=== PATIENT | female | born 1990 | race Caucasian/White ===

== ENCOUNTER 2017-03-15 11:00 | Inpatient (IN) ==
[2017-03-19] MEDS ORDERED: MORPHINE SULFATE PF 5mg/10ml INJ (Duramorph) ONE (23:38)
[2017-03-19] MEDS ORDERED: FentaNYL 100 MCG/2 ML INJECTION ONE (23:39)
[2017-03-20] MEDS ORDERED: ONDANSETRON 4 MG/2 ML INJECTION ONE (00:49)
[2017-03-20] MEDS ORDERED: EPHEDRINE 50mg/ml INJECTION ONE (00:49)
[2017-03-20] MEDS ORDERED: SALINE FLUSH 10ml SYRINGE ONE (00:49)
[2017-03-20] MEDS ORDERED: METHYLERGONOVINE 0.2 MG/ML INJECTION IM PRN (08:34)
[2017-03-20] MEDS ORDERED: LIDOCAINE 1% (10mg/ml) 2mL INJ PF SDV ID PRN (08:34)
[2017-03-20] MEDS ORDERED: CARBOPROST 250 MCG/ML INJECTION IM PRN (08:34)
[2017-03-20] MEDS ORDERED: MAG-AL + SIM ORAL LIQUID 30ml PO PRN ×2 (08:34→14:20)
[2017-03-20] MEDS ORDERED: CALCIUM CARBONATE Chewable 500mg TABLET PO PRN ×2 (08:34→14:20)
[2017-03-20] MEDS ORDERED: ACETAMINOPHEN 500 MG TABLET PO PRN ×2 (08:34→14:20)
[2017-03-20] MEDS: LR 1,000 ML IV PRN ×3 (08:45→11:57)
[2017-03-20] MEDS ORDERED: OXYTOCIN DRIP 30 UNIT/500 ML ML IV PRN (10:00)
[2017-03-20] MEDS ORDERED: D5LR 1,000 ML IV PRN (10:00)
--- NOTE | 2017-03-20 11:12 | Anesthesia Preoperative Report ---
Anesthesia Epidural/Spinal Rec - Date and Time Date: 03/20/17 Procedure: Labor Epidural Plan: Epidural - Vital Signs Vital Signs: Temp Pulse Resp BP Pulse Ox 97.8 F 83 16 117/70 100 03/20/17 09:11 03/20/17 09:11 03/20/17 09:11 03/20/17 09:11 03/20/17 09:11 NPO since: T-1 /Para: P:2 Heart Rate: 147 - Medictaions & Allergies Inpatient Medications: Current Medications Acetaminophen (Tylenol) 500 - 1,000 mg PO Q4H PRN PRN Reason: Pain Al Hydroxide/Mg Hydroxide (Maalox Plus) 30 ml PO Q3H PRN PRN Reason: Indigestion Calcium Carbonate (Tums) 500 - 1,000 mg PO Q2H PRN PRN Reason: Indigestion Carboprost Tromethamine (Hemabate) 250 mcg IM O PRN PRN Reason: .Downtime Lactated Ringer's (Lactated Ringers) 1,000 mls @ 1,000 mls/hr IV .Q1H PRN PRN Reason: as directed Last Admin: 03/20/17 09:57 Dose: 1,000 mls/hr Dextrose/Lactated Ringer's (Dextrose 5%-Lactated Ringers) 1,000 mls @ 125 mls/ hr IV .Q8H PRN PRN Reason: Labor Oxytocin (Pitocin Drip) 30 unit in 500 mls @ 2 mls/hr IV .Q24H PRN; Protocol PRN Reason: Induction/Augmentation Last Admin: 03/20/17 10:33 Dose: 2 mls/hr Lidocaine HCl (Xylocaine-Mpf 1% Vial) 0.2 mg ID O PRN PRN Reason: IV Start Methylergonovine Maleate (Methergine) 0.2 mg IM O PRN Misoprostol (Cytotec) 800 mcg CA ONCE PRN Allergies/Adverse Reactions: Allergies Allergy/AdvReac Type Severity Reaction Status Date / Time No Known Drug Allergies Allergy Unknown Verified 03/20/17 09:54 - Home Medications Home Medications: Home Medications Medication Instructions Recorded Confirmed Type Acetaminophen [Tylenol] 1 - 2 tab PO Q6HPRN PRN 03/15/17 03/20/17 History Doxylamine/Pyridoxine HCl (B6) 1 each PO DAILY 03/15/17 03/20/17 History [Marv Carballo 10-10 mg Tablet] Vit Calc,Iron,Folic 1 each PO DAILY 03/15/17 03/20/17 History [ Vitamins] - Medical History Respiratory: DENIES: Asthma Cardiovascular: DENIES: Heart Murmur, Hypertension Gastrointestional: DENIES: Gastroesophageal Reflux Disease Renal/Endocrine: DENIES: Diabetes Mellitus Type 2 Other History: DENIES: Anesthesia Reactions - Pertinent Findings Lab Data: CBC and BMP 03/20/17 08:48 - Discussion Discussion: Discussed risks/options/alternatives of anesthesia and questions answered. Patient consents. Nursing pain assessment noted. Attestation Statement: Prior to the delivery of any anesthetic medication, I examined the patient, developed the plan, obtained the patient's consent and discussed the risk and benefits of the procedure with the patient/guardian.
[2017-03-20] MEDS ORDERED: DiphenhydrAMINE 50 MG/ML INJECTION IVP PRN (11:31)
[2017-03-20] MEDS ORDERED: ONDANSETRON 4 MG/2 ML INJECTION IVP PRN (11:31)
[2017-03-20] MEDS ORDERED: ROPIVACAINE 1% 10MG/ML INJ 200 MG, SUFentanil 50 MCG in NS 100 ML EPI PRN (11:31)
[2017-03-20] MEDS ORDERED: NALOXONE 0.4 MG/ML INJECTION IVP PRN (11:31)
[2017-03-20] MEDS ORDERED: PHENYLEPHRINE RECTAL SUPPOSITORY PR PRN (14:20)
[2017-03-20] MEDS ORDERED: HYDROCORTISONE 2.5% CREAM 30gm RECTALLY PRN (14:20)
[2017-03-20] MEDS ORDERED: DiphenhydrAMINE 25 MG CAPSULE PO PRN (14:20)
[2017-03-20] MEDS ORDERED: HYDROCODONE/APAP 5mg/325mg TABLET PO PRN (14:20)
[2017-03-20] MEDS ORDERED: SALINE FLUSH 10ml SYRINGE IVF PRN (14:20)
--- NOTE | 2017-03-20 14:22 | OB/GYN Procedure Note ---
Delivery date: 03/20/17 Procedure: Patient is a 26 year old, 3, para 2 who presented to labor and delivery at 36 weeks 6 days with spontaneous rupture of membranes with clear fluid earlier today at 0745 (premature PROM more than 34 weeks). Antepartum complications included elevated 1 hour but normal 3 hour glucose screening. Patient presented to the hospital at 0800 this morning and was dilated to 3 centimeter. heart rate was reactive and reassuring. Patient was comfortable and gabriela every 5 minutes so we opted for conservative management. She did not have any cervical change in the next hour and her contractions had spaced out so Pitocin per protocol was started for induction of labor for premature rupture of membranes until an adequate contraction pattern was achieved. She entered active labor at 5 centimeters approximately 2 hours later. At that time, she felt increasingly uncomfortable. An epidural was placed per patient's wishes for labor analgesia. No other complication noted. She progressed to complete dilation after 6 hours of labor. Patient remained in the labor room, was prepped and draped in the usual sterile fashion. The delivered spontaneously and without difficulty after 5 minutes of pushing with good maternal effort. The infant had a good vigorous cry. Patient declined skin- to-skin and preferred that the be assessed at the warmer station first. The cord was clamped and cut after a 1 minute delay, and the placenta spontaneously delivered without difficulty after 15 minutes. There was a first degree perineal laceration noted which was repaired in the usual fashion using 2 -0 chromic suture. A vaginal sweep was then performed. Hemostasis was noted. No complications. No atony. Infant and mother are doing well at this time. Apgars 7/9 Weight: 6 lbs 5.1 oz Name: Jackie Gutierrez
[2017-03-20] MEDS ORDERED: OXYTOCIN DRIP 30 UNIT/500 ML ML IV SCH (14:30)
[2017-03-20] MEDS: IBUPROFEN 800 MG TABLET PO PRN ×2 (15:23→23:07)
--- NOTE | 2017-03-21 08:15 | Discharge Summary ---
Discharge Plan - Med Rec/Dispo Prescriptions: New Ibuprofen [Motrin] 800 mg PO Q8H PRN #50 PRN Reason: Pain Docusate Calcium [Surfak] 240 mg PO DAILY cap Continue Vit Calc,Iron,Folic [ Vitamins] 1 each PO DAILY #90 No Action Acetaminophen [Tylenol] 1 - 2 tab PO Q6HPRN PRN PRN Reason: Pain Doxylamine/Pyridoxine HCl (B6) [Marv Carballo 10-10 mg Tablet] 1 each PO DAILY - Disposition 01 Discharged Home, Self-Care
[2017-03-21] MEDS: IBUPROFEN 800 MG TABLET PO PRN ×2 (08:20→15:51)
--- NOTE | 2017-03-21 08:24 | OB/GYN Progress Note ---
OB-PP Progress Note - General PPD1 Maternal Group B Strep: Negative Maternal blood type: O+ Maternal Rubella Status: Immune - Subjective Date: 03/21/17 Lochia: Moderate Pain: contolled Voiding: voiding Nausea or Vomiting Present: No - Objective Vital Signs: Last Vital Signs Temp 98.5 F 03/20/17 22:00 Pulse 72 03/20/17 22:00 Resp 16 03/20/17 22:00 BP 98/53 03/20/17 22:00 Pulse Ox 99 03/20/17 22:00 Urine Output: good General: alert and oriented Respiratory: non-labored Abdomen: fundus firm, non-tender Extremities: non-tender Edema: none Laboratory: Laboratory Results - last 24 hr 03/20/17 03/21/17 08:48 05:54 WBC 11.9 H 12.8 H RBC 3.86 L 3.38 L Hgb 12.2 10.5 L D Hct 35.7 L 31.6 L D MCV 92.5 93.5 MCH 31.6 31.1 MCHC 34.2 33.2 RDW Std Deviation 45.4 44.9 Plt Count 206 195 MPV 10.7 10.9 - Assessment Assessment: SPMAYKELD - Plan Plan: routine care Expected date of discharge: 03/21/17
[2017-03-21] MEDS ORDERED: PRENATAL VITAMIN TABLET PO SCH (09:00)
[2017-03-21] MEDS ORDERED: DOCUSATE CALCIUM 240 MG CAPSULE PO SCH (09:00)
--- NOTE | 2017-03-21 10:42 | Anesthesia Postoperative Note ---
- Date and Time Date: 03/21/17 Time: 10:41 - Status Patient Participated in Evaluation: Patient Participated in Person Vital Signs: Temp Pulse Resp BP Pulse Ox 98.0 F 68 16 97/53 99 03/21/17 09:45 03/21/17 09:45 03/21/17 09:45 03/21/17 09:45 03/20/17 22:00 Respiratory Function: Airway Patent Cardiovascular Function: Regular Pulse EKG Rhythm: Normal Sinus Rhythm Mental Status: Alert and Oriented Hydration: Taking PO Fluids Complications During Recover: None Apparent - Follow-Up Instructions Instructions: Per Surgeon
== END 2017-03-21 18:27 | disposition home or self-care (01) | DRG 775 ==
LOC: MC 03-20 08:21
PROVIDERS: ADMIT Obstetrics & Gynecology; ATTEND Obstetrics & Gynecology

== ENCOUNTER 2018-05-16 06:04 | Inpatient (IN) ==
[2018-05-16] MEDS ORDERED: D5LR 1,000 ML IV PRN (06:14)
[2018-05-16] MEDS ORDERED: METHYLERGONOVINE 0.2 MG/ML INJECTION IM PRN (06:14)
[2018-05-16] MEDS ORDERED: CARBOPROST 250 MCG/ML INJECTION IM PRN (06:14)
[2018-05-16] MEDS ORDERED: MAG-AL + SIM ORAL LIQUID 30ml PO PRN (06:14)
[2018-05-16] MEDS ORDERED: SALINE FLUSH 10ml SYRINGE IV PRN (06:14)
[2018-05-16] MEDS ORDERED: CALCIUM CARBONATE Chewable 500mg TABLET PO PRN (06:14)
[2018-05-16] MEDS ORDERED: LIDOCAINE 1% (10mg/ml) 2mL INJ PF SDV ID PRN (06:14)
[2018-05-16] MEDS ORDERED: ACETAMINOPHEN 500 MG TABLET PO PRN (06:14)
[2018-05-16] MEDS ORDERED: OXYTOCIN DRIP 30 UNIT/500 ML ML IV PRN (06:16)
[2018-05-16 06:23] VITALS: BMI 22.6
[2018-05-16] MEDS: LR 1,000 ML IV PRN ×2 (06:25→13:41)
--- OUTSIDE RECORDS SUMMARY | 2018-05-16 06:30 | External Medical Summary | Continuity of Care Document ---
:1990 Author Organization [facility] Address [address] [place] [id number] Phone Care Team Providers Name Role Phone Annette Gupta MD Unavailable Unavailable Allergies, Adverse Reactions, Alerts Substance Reaction Severity Status No Known Drug Allergies Unknown Active Medications Medication Instructions Dosage Effective Dates Status Comments (start - stop) Plus take 1 tablet by Not Available - Active (calcium oral route every carbonate) 27 mg day iron-1 mg tablet Problems Condition Effective Dates (start - stop) Clinical Status Supervision of other high risk - pregnancies, third trimester 30 weeks gestation of - Encntr for suprvsn of normal , unsp, unsp trimester Irregular Menses Supervision of other high risk - pregnancies, first trimester 11 weeks gestation of - Supervision of other high risk - pregnancies, first trimester Less than 8 weeks gestation of - Supervision of other high risk - pregnancies, second trimester 27 weeks gestation of - Supervision of other high risk - pregnancies, second trimester 22 weeks gestation of - Supervision of other high risk - pregnancies, second trimester 18 weeks gestation of - Supervision of other high risk - pregnancies, second trimester Matern care for oth or susp poor fetl - grth, 2nd tri, unsp 18 weeks gestation of - Matern care for oth or susp poor fetl - grth, 2nd tri, unsp 15 weeks gestation of - Matern care for oth or susp poor fetl - grth, third tri, unsp 32 weeks gestation of - False labor before 37 completed weeks - of gest, third tri Left lower quadrant pain 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) w 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 Pap Smear Screening, Cervix Left lower quadrant pain - Left lower quadrant pain Abnormal Pap, LSIL Abnormal Pap, LSIL Encounter for test, result - negative Pap Smear Screening, Cervix - Encounter for initial prescription of contraceptive pills Follow-Up, Routine Encounter for oth general cnsl and advice on procreation Cervical Dysplasia, Mild - Active Active Procedures Procedure Date OB Visit No Charge Results Test Name Date and Time Measure Units Reference Range Abnormal Flag Comments Unknown Advance Directives Directive Yes / No Effective Date File Name Unknown Encounters Encounter Practice Location Reason(s) Diagnoses Date Provider Care Team Description For Visit Members Claudette Brice Matern care for Mar- Foster Referring In Womens oth or susp poor 5-201 Nora. Provider: Asha HOLLINS, fetl grth, third 8 [address] tri, [id number] [facility] [address] [address], weeks gestation Center n, [address] [place], of [place]on Carballo MD, [address], [place] , [id number], [place], [place], [address]. tel:[phone] tel: [phone] , [place]. [id number] tel: [phone] Claudette Brice Supervision of Foster Referring In Womens other high risk 0-201 Nora. Provider: Asha HOLLINS, pregnancies, 8 [address] third [facility] [address], Center n, 700 [place], weeks gestation Weston Carballo MD, of [address] [id number], [place]uniel Br[place], [place], [address]. tel: [phone] tel: , [place]. [id number] tel: [phone] Brice Supervision of May-3 Foster Referring In Womens other high risk 0-201 Nora. Provider: Health [facility], pregnancies, 8 [address] PO Box second [facility] [place], [email or web address] Center n, 700 [place], weeks gestation Weston Carballo, of 120, [place] , [id number], [place]uniel Br[place], [place], [address]. tel:[phone] tel: , [place]. [id number] tel: [phone] Claudette Brice Supervision of Apr-3 Foster Referring In Womens other high risk 0-201 Nora. Provider: [facility], pregnancies, 8 [address] PO Box second [facility] [place] [address], [email or web address] Center n, 700 [place], weeks gestation Weston Carballo, of 120, [place] , [id number], [place]uniel Br[place], [place], [address]. tel: tel: , [place]. [id number] tel: [phone] Claudette Brice Supervision of Apr-0 Foster Referring In Womens other high risk 2-201 Nora. Provider: Health [facility], pregnancies, 8 700 [address] PO Box second [facility] [place] [address], [email or web address] Center n, 700 [place], weeks gestation Weston Carballo, of 120, [place] , [id number], Yuniel Brice, [place], [address]. tel:[phone] tel: , [place]. [id number] tel: [phone] Claudette Brice Supervision of Apr-0 Foster Referring In Womens Ultrasound other high risk 2-201 Nora. Provider: [facility], pregnancies, 8 700 An[address]te PO Box second [facility] [place] [address], trimesterMatern Center n, 700 [place], care for oth or Weston Carballo, susp poor fetl 120, [place] , [id number], gr, 2nd triYuniel [place], unsp18 [place], [address]. tel: gestation of [phone] tel: , [place]. [id number] tel: [phone] Claudette Brice Matern care for Nov-0 Foster Referring In Womens oth or susp poor 7-201 Nora. Provider: Asha HOLLINS, fetl grth, 2nd 8 [address] PO Box tri, [id number] [facility] [place] [address], weeks gestation Center n, 700 [place], of , [facility], 120, [place] , [id number], Yuniel Brice, [place], [address]. tel:[phone] tel: , [place]. [id number] tel: [phone] Claudette Brice Supervision of Oct- Foster Referring In Womens other high risk 7-201 Nora. Provider: Asha HOLLINS, pregnancies, 8 700 [address] PO Box first [facility] [place] [address], [email or web address] Center n, 700 [place], weeks gestation Dr [facility], of 120, [place] , [id number], Yuniel Brice, [place], [address]. tel:[phone] tel: , [place]. [id number] tel: [phone] Claudette Brice Supervision of Foster Referring In Womens other high risk 0-201 Nora. Provider: Asha HOLLINS, pregnancies, 8 700 [address] PO Box first [facility] [place] [address], trimesterLess Center n, 700 [place], than 8 weeks , [facility], gestation of 120, Center , , Yuniel Brice, [place], [address]. tel:[phone] tel: , [place]. [id number] tel: [phone] Claudette Brice Encntr for Aug- Foster Referring In Womens suprvsn of 7-201 Nora. Provider: Asha HOLLINS, normal 7 700 [address]nette PO Box , unsp, [facility] [place] [address], unsp trimester Center n, [address] [place], Dr [facility], 120, [place] , [id number], Yuniel Brice, [place], [address]. tel:[phone] tel: , [place]. [id number] tel: [phone] Claudette Brice Irregular Menses Dec-2 Foster In Womens 6-201 Nora. Asha HOLLINS, 7 700 PO Box Medical [address], [address] Tyree, [facility], 120, [id number], [place], [place], tel:[phone] , [place]. tel: [phone] Claudette Brice Abnormal Pap, Apr-1 Foster Referring In Womens LSILAbnormal 7-201 Nora. Provider: Asha HOLLINS, Pap, 7 700 [address] [facility], for Center n, 700 [place], test, result , [facility], negative 120, [place] , , [place], [place], [address]. tel:[phone] tel: , [place]. [id number] tel: [phone] Claudette Brice Pap Smear Apr-0 Foster Referring In Womens Screening, 4-201 Nora. Provider: Asha HOLLINS, [facility] 7 700 Annette PO Box for initial Medical [facility] 1522, prescription of Center n, 700 Tyree, contraceptive , [facility], pillsPostpartum 120, [place] , , Follow-Up, Y[place], [place], [address]. tel:[phone] tel: , [place]. [phone] tel: [phone] [facility] False labor Vignesh-1 Foster Referring In Womens before 37 3-201 Nora. Provider: Asha HOLLINS, completed weeks 7 700 Annette PO Box [facility], tri Center n, [address] Dr Tyree, [facility] [place], 120, [place] , [id number], [place], [place], [address]. tel:[phone] tel: , [place]. [id number] tel: [phone] Claudette Brice May- Foster Referring In Womens 7-201 Nora. Provider: Asha HOLLINS, 7 700 [address]te [facility], Center n, [address] Dr Tyree, [facility] [place], 120, Center , [id number], [place], [place], [address]. tel:[phone] tel: , [place]. [id number] tel: [phone] [facility] Encounter for Mar-2 Foster In Womens oth general cnsl 7-201 Nora. [facility], and advice on 6 700 PO Box procreation Medical [address], [place] [address] Tyree, [facility] [place], 120, [id number], [place], [place], tel:[phone] , [place]. tel: [phone] [facility] Left lower Apr-1 Resendez In Womens quadrant pain 1-201 Malaika. [facility], 6 700 PO Box Medical [address], [place] [address] Tyree, [facility] [place], 120, , [place], [place], tel:[phone] , [place]. tel: [phone] [facility] Left lower Apr-1 Foster In Womens Ultrasound quadrant pain 1-201 Nora. [facility], 6 700 PO Box Medical [address], [place] [address] [place], [facility] [place], 120, , [facility] [place], tel:[phone] , [place]. tel: [phone] [facility] Left lower Apr-0 Foster Referring In Womens quadrant 8-201 Nora. 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 , [place]. tel: tel: [phone] [facility] Sep-1 Resendez In Womens 9-201 Malaika. [facility], 2 700 PO Box Medical [address], [place] [address] Tyree, [facility] [place], 120, [id number], [place], [place], tel:[phone] , . tel:[phone] Family History Family Member Diagnosis Age At Onset Mother Diabetes mellitus Maternal grandmother Liver Disease 75 Maternal grandmother Diabetes mellitus No family history of Venous Thrombosis No family history of Ovarian Cancer No family history of Breast Cancer No family history of Pulmonary Embolism Maternal Grandfather Cardiovascular Disease Mother Renal disease No family history of Colon Cancer Mother Hypertension No family history of Uterine Cancer Immunizations Vaccine Date Status Comments Influenza, injectable, completed Source: Other Provider quadrivalent, preservative free, 3 yrs or older Tdap completed Source: New Immunization Record HPV (9-valent) completed Source: New Immunization Record Payers Payer name Insurance type Covered democrat ID Authorization(s) [facility] [id number] [employer] [place] - Medicaid [place] [id number] [employer] [place] MC [id number] [facility] [id number] [employer] [place] Medicaid [place] [id number] Social History Type Description Quantity Date Captured Alcohol Use Details No Caffeine Use Details Unknown Tobacco Use Status Unknown Smoking Status Never smoker Vital Signs Date / Height Weight BMI Pulse Blood Temperature Respiratory Body Head BMI Time: Rate Pressure Rate Surface Circumference percentile Area 126.10 21.4 /2018 lbs 4 mm[Hg] 1:48 kg/m PM eter (2) Chief Complaint And Reason For Visit Unknown Chief Complaint And Reason For Visit Reason For Referral Reason For Referral Unknown Plan Of Care Date Type Action Status Appointment Rosita Zhou BOOKED Appointment Rosita Zhou BOOKED Future Order: Radiology Order Complete OB Ultrasound > 14 Weeks Ordered ([id number]) Future Order: Lab Order Pap Smear With HPV Reflex If ASCUS Ordered ([id number]) Future Order: Radiology Order Pelvic Ultrasound ([id number]) Ordered Date Type Problem Goal Intervention Status Start Date Unknown. History Of Present Illness Encounter Date Complaint History Of Present Illness This patient has no known history of present illness Functional Status Encounter Date Functional Assessment Cognitive Assessment Unknown Medications Administered Medication Instructions Dosage Effective Dates (start - stop) Status Comments Drug Treatment Unknown Instructions Date Instruction Additional Information gestational glucose lab screening HIV and other routine tests risk factors identified by history anticipated course of care nutrition and weight gain counseling, special diet toxoplasmosis precautions (cats / raw meat) exercise indications for ultrasound influenza vaccine environmental / work hazards travel tobacco (ask, advise, assess, assist and arrange) alcohol illicit / recreational drugs use of any medications (including supplements, vitamins, herbs, OTC drugs) smoking counseling domestic violence seat belt use genetic testing new ob handbook labor signs group B strep screening
--- OUTSIDE RECORDS SUMMARY | 2018-05-16 06:30 | External Medical Summary | Continuity of Care Document ---
:1990 Author Organization [facility] [place] Address [address] [place], [place] [id number] Phone Care Team Providers Name Role Phone Annette Gupta MD Unavailable Unavailable Allergies, Adverse Reactions, Alerts Substance Reaction Severity Status No Known Drug Allergies Unknown Active Medications Medication Instructions Dosage Effective Dates Status Comments (start - stop) Aviane 0.1 mg-20 take 1 tablet by Not Available - Active mcg tablet oral route every day Problems Condition Effective Dates (start - stop) Clinical Status Pap Smear Screening, Cervix - Encounter for initial prescription of contraceptive pills Follow-Up, Routine False labor before 37 completed weeks - of gest, third tri Left lower quadrant pain 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) - (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) w 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 Pap Smear Screening, Cervix Left lower quadrant pain - Left lower quadrant pain Encounter for oth general cnsl and advice on procreation Abnormal Pap, LSIL Abnormal Pap, LSIL Encounter for test, result - negative Cervical Dysplasia, Mild - Active Active Procedures Procedure Date Unknown Results Test Name Date and Time Measure Units Reference Range Abnormal Flag Comments Unknown Advance Directives Directive Yes / No Effective Date File Name Unknown Encounters Encounter Practice Location Reason(s) Diagnoses Date Provider Care Team Description For Visit Members Claudette [place] Foster In [facility] 8-201 [facility] [place], 7 700 [address], [place] [address] Tyree, [facility] [place], 120, [id number], [place], tel:[phone] , [place]. tel: [phone] Claudette [place] Abnormal Pap, Aug- Foster Referring In Womens LSILAbnormal 7-201 Nora. Provider: Asha HOLLINS, Pap, 7 700 Annette [facility], for Center n, 700 Tyree, test, result , [facility], negative 120, [place] , [id number], Yuniel [place], [place], [address]. tel:[phone] tel: , [place]. [id number] tel: [phone] Claudette [place] Pap Smear Apr-0 Foster Referring In Womens Screening, 4- Nora. Provider: Asha HOLLINS, CervixEncounter 7 700 Annette PO Box for initial Medical [facility] 1522, prescription of Center n, 700 Tyree, contraceptive , [facility], pillsPostpartum 120, [place] , , Follow-Up, Yun[place], [place], [address]. tel:[phone] tel: , [place]. [id number] tel: [phone] Claudette [place] False labor Vignesh- Foster Referring In Womens before 37 3-201 Nora. Provider: Asha HOLLINS, completed weeks 7 700 Annette PO Box of [facility], [facility] 1522, tri Center n, [address] Dr Tyree, [facility], 120, [place] , [id number], Yuniel [place], [place], [address]. tel:[phone] tel: , [place]. [id number] tel: [phone] Claudette [place] January- Foster Referring In Womens 7-201 Nora. Provider: Asha HOLLINS, 7 700 Annette PO Box [facility] 1522, Center n, [address] Dr Tyree, [facility], 120, [place] , [id number], [place]uniel [place], [place], [address]. tel:[phone] tel: , [place]. [id number] tel: [phone] Claudette [place] Encounter for Mar-2 Foster In Womens oth general cnsl 7-201 Nora. Health PA, and advice on 6 700 PO Box procreation Medical [address], [place] [address] Tyree, [place], [address], [id number], [place], tel:[phone] , [place]. tel: [phone] Claudette [place] Left lower Apr-1 Resendez In Womens quadrant pain 1-201 Malaika. Health [place], 6 700 [address] Medical [address], [place] [address] Tyree, [facility] [place], 120, [id number], [place], tel:[phone] , [place]. tel: [phone] Claudette [place] Left lower Apr-1 Foster In Womens Ultrasound quadrant pain 1-201 Nora. Health PA, 6 700 PO [address] Medical [address], [address], [facility] [place], 120, , [facility] [place], tel:[phone] , [place]. tel: [phone] Claudette [place] Left lower Apr-0 Foster Referring In Womens quadrant 8-201 Nora. Provider: Health PA, painEncntr for 700 Nora Foster PO Box director of marketing analytics exam Medical K, 700 1522, (general) [place] Lian Clements, (routine) w , [facility] [place], abnormal 120, [place] 120, [id number], findingsPap [facility], Smear Screening, [place], [place], tel: Cervix [phone]. , [place]. tel:+ tel: [phone] Claudette [place] Sep-1 Resendez In Womens 9-201 Malaika. Health [place], 2 700 PO Box Medical [address], [place] [address] Tyree, [facility] [place], 120, , [facility] [place], tel:[phone] , [place]. tel: [phone] Family History Family Member Diagnosis Age At [...] Uterine Cancer Immunizations Vaccine Date Status Comments Tdap completed Source: New Immunization Record HPV (9-valent) completed Source: New Immunization Record Payers Payer name Insurance type Covered green party ID Authorization(s) [facility] [id number] [employer] [place] Medicaid [place] [id number] [employer] [place] [id number] [facility] [id number] [employer] [place] Medicaid [place] [id number] Social History Type Description Quantity Date Captured Unknown Vital Signs Date / Height Weight BMI Pulse Blood Temperature Respiratory Body Head BMI Time: Rate Pressure Rate Surface Circumference percentile Area Unknown Chief Complaint And Reason For Visit Unknown Chief Complaint And Reason For Visit Reason For Referral Reason For Referral Unknown Plan Of Care Date Type Action Status Future Order: Lab Order Pap Smear With HPV Reflex If ASCUS Ordered ([id number]) Future Order: Radiology Order Pelvic Ultrasound ([id number]) Ordered Date Type Problem Goal Intervention Status Start Date Unknown. History Of Present Illness Encounter Date Complaint History Of Present Illness This patient has no known history of present illness Functional Status Encounter Date Functional Assessment Cognitive Assessment Unknown Medications Administered Medication Instructions Dosage Effective Dates (start - stop) Status Comments Drug Treatment Unknown Instructions Date Instruction Additional Information labor signs group B strep screening
--- OUTSIDE RECORDS SUMMARY | 2018-05-16 06:30 | External Medical Summary | Continuity of Care Document ---
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 Provider: Health GUNJAN, fetl grth, third 8 700 Annette PO Box tri, unsp32 Medical [place] [address]22, weeks gestation Center n, 700 [place], of [place], 120, [place] , [id number], Yuniel [place], [place], [address]. tel:[phone] tel: [phone] , [place]. [id number] tel: [phone] Claudette [place] Supervision of Foster Referring In Womens other high risk 0-201 Nora. Provider: Health PA, pregnancies, 8 700 Annette PO Box third Medical [place] [address], [email or web address] Center n, 700 [place], weeks gestation [place], of 120, Center Dr [id number], Yuniel [place], [place], [address]. tel: [phone] tel: , [place]. [id number] tel: [phone] [place] Supervision of May-3 Foster Referring In Womens other high risk 0-201 Nora. Provider: Health PA, pregnancies, 8 700 Annette PO Box second Medical [place] 1522, [email or web address] Center n, 700 [place], weeks gestation [place], of 120, Center , [id number], Yuniel [place], [place], [address]. tel:[phone] tel: , [place]. [id number] tel: [phone] Claudette [place] Supervision of Apr-3 Foster Referring In Womens other high risk 0-201 Nora. Provider: Health PA, pregnancies, 8 700 Annette PO Box second Medical [place] [address]22, [email or web address] Center n, [address] [place], weeks gestation [place], of 120, Center , [id number], Yuniel [place], [place], [address]. tel: tel: , [place]. [phone] tel: [phone] Claudette [place] Supervision of Apr-0 Foster Referring In Womens other high risk 2-201 Nora. Provider: Health PA, pregnancies, 8 700 Annette PO Box second Medical [place] [address], [email or web address] Center n, [address] [place], weeks gestation [place], of 120, Center , [id number], Yuniel [place], [place], [address]. tel:[phone] tel: , [place]. [phone] tel: [phone] Claudette [place] Supervision of Apr-0 Foster Referring In Womens Ultrasound other high risk 2-201 Nora. Provider: Health PA, pregnancies, 8 700 Annette PO Box second Medical [place] [address]22, trimesterMatern Center n, [address], care for oth or [place], susp poor fetl 120, Center , [id number], gr, 2nd triYuniel [place], unsp18 [place], [address]. tel: gestation of [phone] tel: , [place]. [id number] tel: [phone] Claudette [place] Matern care for Nov-0 Foster Referring In Womens oth or susp poor 7-201 Nora. Provider: Asha HOLLINS, fetl grth, 2nd 8 700 Annette PO Box tri, unsp15 Medical [place] 1522, weeks gestation Center n, [address] [place], of , [facility], 120, Center , [id number], Yuniel [place], [place], [address]. tel:[phone] tel: , [place]. [id number] tel: [phone] Claudette [place] Supervision of Oct- Foster Referring In Womens other high risk 7-201 Nora. Provider: Asha HOLLINS, pregnancies, 8 700 Annette PO Box first Medical [place] [address]22, [email or web address] Center n, [address] [place], weeks gestation Dr [facility], of 120, [place] , [id number], Yuniel [place], [place], [address]. tel:[phone] tel: , [place]. [id number] tel: [phone] Claudette [place] Supervision of Foster Referring In Womens other high risk 0-201 Nora. Provider: Asha HOLLINS, pregnancies, 8 700 Annette PO Box first Medical [place] 1522, trimesterLess Center n, [address] [place], than 8 weeks , [facility], gestation of 120, Center , , Yuniel [place], [place], [address]. tel:[phone] tel: , [place]. [id number] tel: [phone] Claudette [place] Encntr for Aug- Foster Referring In Womens suprvsn of 7-201 Nora. Provider: Asha HOLLINS, normal 7 700 Annette PO Box , unsp, Medical [place] 1522, unsp trimester Center n, [address] [place], Dr [facility], 120, Center , [id number], Yuniel [place], [place], [address]. tel:[phone] tel: , [place]. [id number] tel: [phone] Claudette [place] Irregular Menses Dec-2 Foster In Womens 6-201 Nora. Asha HOLLINS, 7 700 PO Box Medical [address], [address] Dr Tyree, [facility], 120, [id number], [place], [place], tel:[phone] , [place]. tel: [phone] Claudette [place] Abnormal Pap, Apr-1 Foster Referring In Womens LSILAbnormal 7-201 Nora. Provider: Asha HOLLINS, Pap, 7 700 Annette [facility], for Center n, 700 [place], test, result , [facility], negative 120, [place] , , [place], [place], [address]. tel:[phone] tel: , [place]. [id number] tel: [phone] Claudette [place] Pap Smear Apr-0 Foster Referring In Womens Screening, 4-201 Nora. Provider: Asha HOLLINS, [facility] 7 700 Annette PO Box for initial Medical [facility] 1522, prescription of Center n, 700 [place], contraceptive , [facility], pillsPostpartum 120, [place] , , Follow-Up, [place], [place], [address]. tel:[phone] tel: , [place]. [id number] tel: [phone] [facility] False labor Vignesh-1 Foster Referring In Womens before 37 3-201 Nora. Provider: Asha HOLLINS, completed weeks 7 700 Annette PO Box of [facility], [facility], tri Center n, [address] Dr [address]ree, [facility] [place], 120, [place] , [id number], [place], [place], [address]. tel:[phone] tel: , [place]. [id number] tel: [phone] Claudette [place] May- Foster Referring In Womens 7-201 Nora. Provider: Asha HOLLINS, 7 700 Annette PO Box [facility], Center n, [address] Dr Tyree, [facility] [place], 120, Center , [id number], [place], [place], [address]. tel:[phone] tel: , [place]. [id number] tel: [phone] [facility] Encounter for Mar-2 Foster In Womens oth general cnsl 7-201 Nora. Health PA, and advice on 6 700 PO Box procreation Medical 1522, [place] Dr Tyree, [facility] [place], 120, [id number], [place], tel:[phone] , [place]. tel: [phone] [facility] Left lower Apr-1 Resendez In Womens quadrant pain 1-201 Malaika. Health PA, 6 700 PO Box Medical [address], [place] [address] Tyree, [facility] [place], 120, , [place], [place], tel:[phone] , [place]. tel: [phone] [facility] Left lower Apr-1 Foster In Womens Ultrasound quadrant pain 1-201 Nora. Health PA, 6 700 PO Box Medical [address], [place] Dr Tyree, [facility] [place], 120, , [facility] [place], tel:[phone] , [place]. tel: [phone] [facility] Left lower Apr-0 Foster Referring In Womens quadrant 8-201 Nora. 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 , [place]. tel: tel: [phone] [facility] Sep-1 Resendez In Womens 9-201 Malaika. Health PA, 2 700 PO Box Medical [address], [place] [address] Tyree, [facility] [place], 120, [id number], [place], tel:[phone] , . tel:[phone] Family History Family Member Diagnosis Age At [...] Record Payers Payer name Insurance type Covered alliance party ID Authorization(s) [facility] [id number] [employer] [place] Medicaid MC [id number] [employer] [place] MC [id number] [facility] [id number] [employer] [place] Medicaid MC [id number] Social History Type Description Quantity Date Captured Alcohol Use Details No Caffeine Use Details Unknown Tobacco Use Status Unknown Smoking Status Never smoker Vital Signs Date / Height Weight BMI Pulse Blood Temperature Respiratory Body Head BMI Time: Rate Pressure Rate Surface Circumference percentile Area 129.20 21.9 / lbs 7 mm[Hg] 10:58 kg/m AM eter (2) Chief Complaint And Reason For Visit Unknown Chief Complaint And Reason For Visit Reason For Referral Reason For Referral Unknown Plan Of Care Date Type Action Status Appointment Rosita Zhou BOOKED Appointment Rosita Zhou BOOKED Future Order: Radiology Order Complete OB Ultrasound > 14 Weeks Ordered ([id number]) Future Order: Lab Order Pap Smear With HPV Reflex If ASCUS Ordered ([id number]) Future Order: Radiology Order Pelvic Ultrasound ([id number]) Ordered Date Type Problem Goal Intervention Status [...]
--- OUTSIDE RECORDS SUMMARY | 2018-05-16 06:30 | External Medical Summary | Continuity of Care Document ---
:1990 Author Organization [facility] Address [address] [place], [place] [id number] Phone Care Team Providers Name Role Phone [...] other high risk - pregnancies, third trimester Matern care for oth or susp poor fetl - grth, third tri, unsp 35 weeks gestation of - Encntr for suprvsn [...] other high risk - pregnancies, third trimester 35 weeks gestation of - Supervision of other high risk - pregnancies, third trimester 30 weeks gestation of - Supervision of other high risk - pregnancies, third trimester 37 weeks gestation of - Supervision of other high risk - pregnancies, third trimester 37 weeks gestation of - Matern care for oth or susp poor fetl - grth, 2nd tri, unsp 15 weeks gestation of - Matern care for oth or susp poor fetl - grth, third tri, unsp 32 weeks gestation of - False labor before 37 completed weeks - of gest, third tri Left lower quadrant pain 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 Provider: Health PA, pregnancies, 8 700 Annette PO Box [facility] Medical [address] 1522, [email or web address] Center n, 700 [place], weeks gestation , [facility] Medical [place], of 120, [place] , [id number], [place], [place], [address]. tel:[phone] tel:+ [phone] , . [id number] tel: [phone] Claudette Br[place] Supervision of Apr-0 Foster Referring In Womens other high risk 9-201 Nora. Provider: Health PA, pregnancies, 8 700 Annette PO Box third Medical [place] [address], [email or web address] Center n, 700 [place], weeks gestation Weston Carballo, of 120, Center , [id number], [place], [place], [address]. tel:[phone] tel: , [place]. [id number] tel: [phone] Claudette Brice Supervision of Mar-2 Colten Referring In Womens other high risk 6-201 Tyree. 700 Provider: Health PA, pregnancies, 8 Medical Nanette PO Box third [facility], [email or web address] Weston Carballo, 700 [place], weeks gestation 120, Medical JANNETTE, of [place], [address] [id number], JANNETTE, [place], [id number] [place], [address]. tel: , [place]. tel: tel: [phone] Claudette Br[place] Supervision of Mar-2 Foster Referring In Womens Ultrasound other high risk 6-201 Nora. Provider: Health PA, pregnancies, 8 700 Annette PO Box [facility], trimesterMatern Center n, 700 [place], care for oth or Weston Carballo, susp poor fetl 120, Center Dr [id number], gr, third Yuniel crockett [place], unsp35 [place], [address]. tel: gestation of [phone] tel: , [place]. [id number] tel: [phone] Claudette Brice [facility] care for Mar-0 Foster Referring In Womens oth or susp poor 5-201 Nora. Provider: Health PA, fetl grth, third 8 700 Annette PO Box tri, unsp32 Medical [facility], weeks gestation Center n, 700 [place], of Weston Carballo, 120, Center , [id number], [place], [place], [address]. tel: tel: , [place]. [phone] tel: [phone] Claudette Br[place] Supervision of Vignesh-2 Foster Referring In Womens other high risk 0-201 Nora. Provider: Health PA, pregnancies, 8 700 Annette PO Box third Medical [place] [address], [id number] Center n, 700 [place], weeks gestation Weston Carballo, of 120, Center [address] [id number], Yuniel [place], [place], [address]. tel:[phone] tel: , US. [id number] tel: [phone] Claudette Br[place] Supervision of May-3 Foster Referring In Womens other high risk 0-201 Nora. Provider: Health PA, pregnancies, 8 700 Annette PO Box second Medical [place] [address]22, [email or web address] Center n, 700 [place], weeks gestation Weston Carballo, of 120, [address] [id number], Yuniel [place], [place], [address]. tel:[phone] tel: , [place]. [id number] tel: [phone] Claudette Br[place] Supervision of Apr-3 Foster Referring In Womens other high risk 0-201 Nora. Provider: Health PA, pregnancies, 8 700 Annette PO Box second Medical [place] 15[address], [email or web address] Center n, 700 [place], weeks gestation Weston Carballo, of 120, Center Dr [id number], Yuniel [place], [place], [address]. tel:[phone] tel: , US. [id number] tel: [phone] Claudette Br[place] Supervision of Apr-0 Foster Referring In Womens other high risk 2-201 Nora. Provider: Health PA, pregnancies, 8 700 Annette PO Box second Medical [place] [address]22, [email or web address] Center n, 700 [place], weeks gestation Weston Carballo, of 120, Center Dr [id number], Yuniel [place], [place], [address]. tel:[phone] tel: , US. [id number] tel: [phone] Claudette Br[place] Supervision of Apr-0 Foster Referring In Womens Ultrasound other high risk 2-201 Nora. Provider: Health PA, pregnancies, 8 700 Annette PO Box second Medical [place] [address]22, trimesterMatern Center n, 700 [place], care for oth or Weston Carballo, susp poor fetl 120, Center , [id number], gr, 2nd [facility], Yuniel [place], unsp18 [place], [address]. tel: gestation of [phone] tel: , US. [id number] tel: [phone] Claudette Br[place] Matern care for Mar-0 Foster Referring In Womens oth or susp poor 7-201 Nora. Provider: Asha HOLLINS, fetl grth, 2nd 8 700 Annette PO Box tri, unsp15 Medical [place]22, weeks gestation Center n, 700 [place], of Weston Carballo, 120, [place] , [id number], Yuniel [place], [place], [address]. tel: tel: , US. [phone] tel: [phone] Claudette Brice Supervision of Oct-0 Foster Referring In Womens other high risk 7-201 Nora. Provider: Asha HOLLINS, pregnancies, 8 700 Annette PO Box first Medical [place] [address], [email or web address] Center n, 700 [place], weeks gestation Weston Carballo, of 120, Center , [id number], Yuniel [place], [place], [address]. tel: tel: , [place]. [id number] tel: [phone] Claudette Br[place] Supervision of Foster Referring In Womens other high risk 0-201 Nora. Provider: Asha HOLLINS, pregnancies, 8 700 Annette PO Box first Medical [place] 1522, trimesterLess Center n, 700 [place], than 8 weeks Weston Carballo, gestation of 120, Center , , Yuniel [place], [place], [address]. tel: tel: , US. [id number] tel: [phone] Associates Y[facility] Encntr for Dec-2 Foster Referring In Womens suprvsn of Nora. Provider: Asha HOLLINS, normal 7 700 Annette PO Box , unsp, Medical [place] [address], unsp trimester Center n, [address] Dr Tyree, [facility], 120, [place] , [id number], Yuniel [place], [place], [address]. tel:[phone] tel: , US. [id number] tel: [phone] Associates Y[facility]iel Irregular Menses Dec-2 Foster In Womens Nora. Asha HOLLINS, 7 700 PO Box Medical [address], Center Dr Tyree, [facility], 120, [id number], [place], tel: , [place]. tel: [phone] Claudette Br[place] Abnormal Pap, Aug-1 Foster Referring In Womens LSILAbnormal Nora. Provider: Asha HOLLINS, Pap, 7 700 Annette PO Box [facility], for Center n, 700 [place], test, result , [facility], negative 120, [place] , , Yuniel [place], [place], [address]. tel:[phone] tel: , US. [id number] tel: [phone] Claudette Brice Pap Smear Aug-0 Foster Referring In Womens Screening, Nora. Provider: Asha HOLLINS, CervixEncounter 7 700 Annette PO Box for initial Medical [place] [address]22, prescription of Center n, 700 [place], contraceptive , [facility], pillsPostpartum 120, [place] , , Follow-Up, Yun[place], [place], [address]. tel:[phone] tel: , US. [phone] tel: [phone] Associates Y[facility]iel False labor Vignesh-1 Foster Referring In Womens before 37 3-201 Nora. Provider: Health GUNJAN, completed weeks 7 700 Annette PO Box of [facility], tri Center n, [address] Dr Tyree, [facility] [place], 120, [place] , [id number], [place], [place], [address]. tel:[phone] tel:+ , US. [id number] tel: [phone] Associates Y[facility]iel May- Foster Referring In Womens 7-201 Nora. Provider: Asha HOLLINS, 7 700 Annette PO Box [facility], Center n, [address] Dr Tyree, [facility] [place], 120, [place] , [id number], [place], [place], [address]. tel:[phone] tel:[phone] , US. [id number] tel: [phone] Associates Y[facility]iel Encounter for Mar- Foster In Womens oth general cnsl Nora. Health PA, and advice on 6 700 PO Box procreation Medical 1522, [place] [address] Tyree, [facility] [place], 120, [id number], [place], tel:[phone] , [place]. tel:[phone] Associates Yuniel Left lower Apr-1 Resendez In Womens quadrant pain 1-201 Malaika. Asha HOLLINS, 6 700 PO Box Medical [address], [place] [address] Tyree, [facility] [place], 120, [id number], [place], tel:[phone] , [place]. tel:[phone] Claudette Br[place] Left lower Apr-1 Foster In Womens Ultrasound quadrant pain 1-201 Nora. Health UGNJAN, 6 700 PO Box Medical 1522, [place] [address] Tyree, [facility] [place], 120, [id number], [place], tel:[phone] , [place]. tel:[phone] Claudette Br[place] Left lower Apr-0 Foster Referring In Womens quadrant 8-201 Nora. 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 , [place]. tel: tel: [phone] Associates Yuniel Sep-1 [place] In Womens 9-201 [facility], 2 700 PO [facility] 1522, [place] Dr Tyree, Weston JANNETTE, 120, [id number], [place], [place], tel: [phone] , [place]. tel: [phone] Family History Family Member Diagnosis Age At [...] Insurance type Covered alliance party ID Authorization(s) [facility] [id number] [place] - Medicaid [place] [id number] [place] - Medicaid MC [id number] [facility] [id number] [place] - Medicaid [place] [id number] Social History Type Description Quantity Date Captured Unknown Vital Signs Date / Height Weight BMI Pulse Blood Temperature Respiratory Body Head BMI Time: Rate Pressure Rate Surface Circumference percentile Area Unknown Chief Complaint And Reason For Visit Unknown Chief Complaint And Reason For Visit Reason For Referral Reason For Referral Unknown Plan Of Care Date Type Action Status Appointment Rosita Zhou BOOKED Future Order: Radiology Order Ultrasound OB Follow-up ([id number]) Ordered Future Order: Radiology Order Complete OB Ultrasound > 14 Weeks Ordered ([id number]) Future Order: Lab Order Pap Smear With HPV Reflex If ASCUS Ordered ([id number]) Future Order: Radiology Order Pelvic Ultrasound ([id number]) Ordered Date Type Problem Goal Intervention Status [...]
--- OUTSIDE RECORDS SUMMARY | 2018-05-16 06:30 | External Medical Summary | Continuity of Care Document ---
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 Provider: [facility], pregnancies, 8 700 Annette PO Box [facility] Medical Maggie 1522, [email or web address] Center n, 700 [place], weeks gestation , [facility], of 120, Center , [id number], [place], [place], [address]. tel:[phone] tel:[phone] , US. [id number] tel: [phone] [place] Supervision of Aug-0 Foster Referring In Womens other high risk 9-201 Nora. Provider: Health PA, pregnancies, 8 700 Annette PO Box third Medical [place] [address], [email or web address] Center n, 700 [place], weeks gestation Weston Carballo, of 120, Center , [id number], Yuniel [place], [place], [address]. tel:[phone] tel: , US. [id number] tel: [phone] Claudette Br[place] Supervision of Mar-2 Colten Referring In Womens other high risk 6-201 Tyree. 700 Provider: Health PA, pregnancies, 8 Medical Annette PO Box third [facility], [place] Carballo, 700 [place], weeks gestation 120, Medical JANNETTE, of [facility] Dr [id number], JANNETTE, [place], [id number] [place], [address]. tel: , [place]. tel: tel: [phone] Claudette Br[place] Supervision of Mar-2 Foster Referring In Womens Ultrasound other high risk 6-201 Nora. Provider: Health PA, pregnancies, 8 700 Annette PO Box third [facility], trimesterMatern Center n, 700 [place], care for oth or Weston Carballo, susp poor fetl 120, Center Dr [id number], gr, [facility] Yuniel crockett [place], unsp35 [place], [address]. tel: gestation of [phone] tel: , US. [id number] tel: [phone] Claudette Brice [facility] care for Rafa-0 Foster Referring In Womens oth or susp poor 5-201 Nora. Provider: Health PA, fetl grth, third 8 700 Annette PO Box tri, unsp32 Medical [place] [address]22, weeks gestation Center n, 700 [place], of Weston Carballo, 120, Center , [id number], Yuniel [place], [place], [address]. tel: tel: , [place]. [phone] tel:[phone] Claudette Brice Supervision of Vignesh-2 Foster Referring In Womens other high risk 0-201 Nora. Provider: Health PA, pregnancies, 8 700 Annette PO Box third Medical [place] 1522, [email or web address] Center n, 700 [place], weeks gestation Weston Carballo, of 120, Center , [id number], Yuniel [place], [place], [address]. tel:[phone] tel:+ , US. [id number] tel: [phone] Claudette Br[place] Supervision of May-3 Foster Referring In Womens other high risk 0-201 Nora. Provider: Health PA, pregnancies, 8 700 Annette PO Box second Medical [place] 1522, [email or web address] Center n, 700 [place], weeks gestation Weston Carballo, of 120, [place] , [id number], Yuniel [place], [place], [address]. tel:[phone] tel: , US. [id number] tel: [phone] Claudette Br[place] Supervision of Apr-3 Foster Referring In Womens other high risk 0-201 Nora. Provider: Health PA, pregnancies, 8 700 Annette PO Box second Medical [place] 1522, Center n, 700 [place], weeks gestation Weston Carballo, of 120, [place] , [id number], Yuniel [place], [place], [address]. tel:[phone] tel:+ , US. [id number] tel: [phone] Claudette Br[place] Supervision of Apr-0 Foster Referring In Womens other high risk 2-201 Nora. Provider: Health PA, pregnancies, 8 700 Annette PO Box second Medical [place] 1522, [email or web address] Center n, 700 [place], weeks gestation Weston Carballo, of 120, Center , [id number], Yuniel [place], [place], [address]. tel:[phone] tel: , US. [id number] tel:[phone] Claudette Brice Supervision of Apr-0 Foster Referring In Womens Ultrasound other high risk 2-201 Nora. Provider: Asha HOLLINS, pregnancies, 8 700 Annette PO Box second Medical [place] 1522, trimesterMatern Center n, 700 [place], care for oth or Weston [place], susp poor fetl 120, Center , [id number], grmarcio, 2nd [facility], Yuniel [place], unsp18 [place], [address]. tel: gestation of [phone] tel: , US. [id number] tel: [phone] Claudette Br[place] Matern care for Mar-0 Foster Referring In Womens oth or susp poor 7-201 Nora. Provider: Asha HOLLINS, fetl grth, 2nd 8 700 Annette PO Box tri, unsp15 Medical [place] 1522, weeks gestation Center n, 700 [place], of Weston Carballo, 120, [place] , [id number], Yuniel [place], [place], [address]. tel: tel: , US. [id number] tel: [phone] Claudette [place] Supervision of Oct-0 Foster Referring In Womens other high risk 7-201 Nora. Provider: Asha HOLLINS, pregnancies, 8 700 Annette PO Box first Medical [place] 1522, [email or web address] Center n, 700 [place], weeks gestation Weston Carballo, of 120, [place] , [id number], Yuniel [place], [place], [address]. tel: tel: , US. [phone] tel: [phone] Claudette Br[place] Supervision of Foster Referring In Womens other high risk 0-201 Nora. Provider: Asha HOLLINS, pregnancies, 8 700 Annette PO Box first Medical [place] 1522, trimesterLess Center n, 700 [place], than 8 weeks Weston Carballo, gestation of 120, Center , , Yuniel rBice, [place], [address]. tel: tel: , US. [phone] tel: [phone] Associates Yuniel Encntr for Dec-2 Foster Referring In Womens suprvsn of Nora. Provider: Asha HOLLINS, normal 7 700 Annette PO Box , unsp, Medical [place] 1522, unsp trimester Center n, [address] Dr Tyree, [facility], 120, [place] , , Yuniel [place], [place], [address]. tel:[phone] tel: , US. [id number] tel: [phone] Associates Yuniel Irregular Menses Dec-2 Foster In Womens 6- Nora. Asha HOLLINS, 7 700 PO Box Medical 1522, Center Dr Tyree, [facility], 120, [id number], [place], [place], tel:[phone] , [place]. tel: [phone] Claudette Br[place] Abnormal Pap, Aug-1 Foster Referring In Womens LSILAbnormal Nora. Provider: Asha HOLLINS, Pap, 7 700 Annette PO Box [facility] [place], for Center n, 700 [place], test, result , [facility], negative 120, [place] , [id number], Yuniel [place], [place], [address]. tel:[phone] tel: , US. [phone] tel: [phone] Claudette Brice Pap Smear Aug-0 Foster Referring In Womens Screening, Nora. Provider: Asha HOLLINS, CervixEncounter 7 700 Annette PO Box for initial Medical [place] [address]22, prescription of Center n, 700 [place], contraceptive , [facility], pillsPostpartum 120, [place] , , Follow-Up, Yuniel [place], [place], [address]. tel:[phone] tel: , US. [id number] tel: [phone] Associates Yuniel False labor Vignesh-1 Foster Referring In Womens before 37 3- Nora. Provider: Asha HOLLINS, completed weeks 7 700 Annette PO Box [facility], tri Center n, [address] Dr Tyree, [facility] Medical [place], 120, [place] , [id number], [place], [place], [address]. tel:[phone] tel:+ , US. [id number] tel: [phone] Claudette Br[place] May- Foster Referring In Womens 7-201 Nora. Provider: Asha HOLLINS, 7 700 Annette PO Box [facility], Center n, [address] Dr Tyree, [facility] [place], 120, [place] , [id number], [place], [place], [address]. tel:[phone] tel:[phone] , US. 9747681 tel: [phone] Claudette Br[place] Encounter for Mar- Foster In Womens oth general cnsl 7- Nora. Health GUNJAN, and advice on 6 700 PO Box procreation Medical 1522, [place] Dr Tyree, [facility] [place], 120, [id number], [place], [place], tel:[phone] , [place]. tel:[phone] Caludette [place] Left lower Apr-1 Resendez In Womens quadrant pain 1-201 Malaika. Asha HOLLINS, 6 700 PO Box Medical 1522, [place] Dr Tyree, [facility] [place], 120, [id number], [place], tel:[phone] , [place]. tel:[phone] Claudette [place] Left lower Apr-1 Foster In Womens Ultrasound quadrant pain 1-201 Nora. Asha HOLLINS, 6 700 PO Box Medical 1522, [place] Dr Tyree, [facility] [place], 120, [id number], [place], tel:[phone] , [place]. tel:[phone] Claudette [place] Left lower Apr-0 Foster Referring In Womens quadrant 8-201 Nora. 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 , [place]. tel: tel: [phone] Associates Yuniel Sep-1 [place] In Womens 9-201 [facility], 2 700 PO [facility] 1522, [place] Dr Tyree, Weston JANNETTE, 120, [id number], [place], tel: [phone] , [place]. tel: [phone] Family History Family Member Diagnosis Age At [...] Insurance type Covered green party ID Authorization(s) [facility] [id number] [place] - Medicaid [place] [id number] [place] Medicaid [place] [id number] [facility] [id number] [place] - Medicaid MC [id number] Social History Type Description Quantity Date Captured Alcohol Use Details No Caffeine Use Details Unknown Tobacco Use Status Unknown Smoking Status Never smoker Vital Signs Date / Height Weight BMI Pulse Blood Temperature Respiratory Body Head BMI Time: Rate Pressure Rate Surface Circumference percentile Area 130.70 22.2 109/2018 lbs 2 mm[Hg] 1:48 kg/m PM eter (2) Chief Complaint And Reason For Visit Unknown Chief Complaint And Reason For Visit Reason For Referral Reason For Referral Unknown Plan Of Care Date Type Action Status Appointment Rosita Zhou BOOKED Future Order: Radiology Order Complete OB Ultrasound > 14 Weeks Ordered ([id number]) Future Order: Radiology Order Ultrasound OB Follow-up ([id number]) Ordered Future Order: Lab Order Pap Smear With HPV Reflex If ASCUS Ordered ([id number]) Future Order: Radiology Order Pelvic Ultrasound ([id number]) Ordered Date Type Problem Goal Intervention Status [...]
--- OUTSIDE RECORDS SUMMARY | 2018-05-16 06:31 | External Medical Summary | Continuity of Care Document ---
:1990 Author Organization [facility] Address [address] [place] [phone] Phone Care Team Providers Name Role Phone Annette Gupta MD Unavailable Unavailable Allergies, Adverse Reactions, Alerts Substance Reaction Severity Status No Known Drug Allergies Unknown Active Medications Medication Instructions Dosage Effective Dates Status Comments (start - stop) Diclegis 10 mg-10 take 1 tablet by - Active mg tablet,delayed oral route every release day in the morning, 1 tablet in the mid-afternoon, and 2 tablets at bedtime Plus take 1 tablet by Not Available - Active (calcium oral route every carbonate) 27 mg day iron-1 mg tablet Problems Condition Effective Dates (start - stop) Clinical Status Matern care for oth or susp poor fetl - grth, 2nd tri, unsp 15 weeks gestation of - Encntr for suprvsn of normal , unsp, unsp trimester Irregular Menses Supervision of other high risk - pregnancies, first trimester 11 weeks gestation of - Supervision of other high risk - pregnancies, first trimester Less than 8 weeks gestation of - False labor before 37 completed weeks - of gest, third tri Left lower quadrant pain 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 Provider: Health GUNJAN, fetl gr, 2nd 8 [address]net[address] tri, [id number] Medical [place] 1522, weeks gestation Center n, [address], of , [facility], 120, [place] , [id number], Yuniel [place], [facility] [place], [address]. tel:[phone] tel: , [place]. [id number] tel: [phone] Claudette [place] Supervision of Foster Referring In Womens other high risk Nora. Provider: Health GUNJAN, pregnancies, 8 700 Annette PO Box first [facility] [place] [address], [id number] Center n, [address], weeks gestation [place] Carballo, of 120, [place] , [id number], Yuniel Brice, [facility] [place], [address]. tel:[phone] tel: , [place]. [id number] tel: [phone] Claudette [place] Supervision of Foster Referring In Womens other high risk 0-201 Nora. Provider: Health GUNJAN, pregnancies, 8 700 Annette PO Box first [facility] [place] 1522, trimesterLess Center n, [address], than 8 weeks Weston Carballo, gestation of 120, Center , [id number], Yuniel Brice, [facility] [place], [address]. tel: [phone] tel: , [place]. [id number] tel: [phone] Claudette rBice Encntr for Foster Referring In Womens suprvsn of Nora. Provider: Asha HOLLINS, normal 7 700 [address]nette PO Box , unsp, [facility] 1522, unsp trimester Center n, [address], [facility], 120, [place] , [id number], Yuniel Brice, [facility] [place], [address]. tel:[phone] tel: , [place]. [id number] tel: [phone] [facility] Irregular Menses Dec-2 Foster In Womens 6-201 Nora. Asha HOLLINS, 7 700 PO Box Medical [address], [address] Tyree, [facility], 120, [id number], [place], [place], tel:[phone] , [place]. tel: [phone] [facility] Abnormal Pap, Apr- Foster Referring In Womens LSILAbnormal 7 Nora. Provider: Asha HOLLINS, Pap, 7 700 [place] [facility], for Center n, [address], test, result , [facility], negative 120, [place] , [id number], Yuniel Brice, [facility] [place], [address]. tel:[phone] tel: , [place]. [id number] tel: [phone] [facility] Pap Smear Apr-0 Foster Referring In Womens Screening, 4 Shiloh. Provider: Asha HOLLINS, CervixEncounter 7 700 Annette PO Box for initial Medical [facility] 1522, prescription of Center n, Abdelrahman Clements, contraceptive , [facility], pillsPostpartum 120, [place] , , Follow-Up, Yun[place], [place], [address]. tel:[phone] tel: , [place]. [id number] tel: [phone] [facility] False labor Vignesh- Foster Referring In Womens before 37 3-201 Nora. Provider: Asha HOLLINS, completed weeks 7 700 Annette PO Box of gest, third [facility] 1522, tri Center n, Ab[address], [facility], 120, [place] , , [place], [place], [address]. tel:[phone] tel:[phone] , [place]. [id number] tel:[phone] Claudette [place] May- Foster Referring In Womens - Nora. Provider: Health GUNJAN, 7 700 Annette PO Box Medical [facility] 1522, Center , [facility] Dr Tyree, [place], 120, [place] , , [place], [place], [address]. tel:[phone] tel:[phone] , [place]. [id number] tel:[phone] [facility] Encounter for Mar- Foster In Womens oth general cnsl Nora. Health PA, and advice on 700 PO Box procreation Medical 1522, [place] [address] Tyree, [facility] [place], 120, , [place], tel:[phone] , [place]. tel:[phone] [facility] Left lower Apr-1 Resendez In Womens quadrant pain - Malaika. Health [place], 6 700 PO Box Medical [address], [place] [address]ree, [facility] [place], 120, , [place], tel:[phone] , [place]. tel:[phone] Claudette [place] Left lower Apr-1 Foster In Womens Ultrasound quadrant pain - Nora. Health PA, 6 700 PO Box Medical [address], [place] [address] Tyree, [facility] [place], 120, [id number], [place], tel:[phone] , [place]. tel:[phone] [facility] Left lower Apr-0 Foster Referring In Womens quadrant 8- Nora. Provider: Health GUNJAN, painEncntr for Nora Foster PO Box director skills exam Medical K, 700 1522, (general) [place] Lina Clements, (routine) w , [facility] [place], abnormal 120, [place] 120, [id number], findingsPap [place]uniel [place], Sm[place], [place], tel: Cervix [phone]. , [place]. tel: tel: [phone] Claudette [place] Sep-1 Resendez In Womens 9-201 MalaikaCount includes the [facility], 2 700 PO Box Medical [address], [place] [address]ree, [place], 120, [id number], [facility] [place], tel: [phone] , . tel: [phone] Family History Family Member Diagnosis Age At [...] Insurance type Covered alliance party ID Authorization(s) [facility] [id number] [employer] [place] - Medicaid [place] [id number] [place] Medicaid [place] [id number] [facility] [id number] [place] - Medicaid MC [id number] Social History Type Description Quantity Date Captured Alcohol Use Details No Caffeine Use Details Unknown Tobacco Use Status Unknown Smoking Status Never smoker Vital Signs Date / Height Weight BMI Pulse Blood Temperature Respiratory Body Head BMI Time: Rate Pressure Rate Surface Circumference percentile Area 19.7 2018 2 1:50 kg/m PM eter (2) 118.60 20.1 116/72 -2018 lbs 7 mm[Hg] 1:51 kg/m PM eter (2) Chief Complaint And Reason For Visit Unknown Chief Complaint And Reason For Visit Reason For Referral Reason For Referral Unknown Plan Of Care Date Type Action Status Appointment Rosita Zhou BOOKED Appointment Rosita Zhou BOOKED Future Order: Lab Order Pap Smear With HPV Reflex If ASCUS Ordered ([id number]) Future Order: Radiology Order Pelvic Ultrasound ([id number]) Ordered Date Type Problem Goal Intervention Status Start Date Unknown. History Of Present Illness Encounter Date Complaint History Of Present Illness This patient has no known history of present illness Functional Status Encounter Date Functional Assessment Cognitive Assessment Unknown Medications Administered Medication Instructions Dosage Effective Dates (start - stop) Status Comments Drug Treatment Unknown Instructions Date Instruction Additional Information HIV and other routine tests risk factors [...]
--- OUTSIDE RECORDS SUMMARY | 2018-05-16 06:31 | External Medical Summary | Continuity of Care Document ---
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 Lymphs 11:13:00 11 % Not Estab. Monocytes 11:13:00 5 % Not Estab. Eos 11:13:00 4 % Not Estab. Basos 11:13:00 0 % Not Estab. Immature Cells 11:13:00 Neutrophils (Absolute) 11:13:00 8.0 x10E3/uL 1.4-7.0 H Lymphs (Absolute) 11:13:00 1.1 x10E3/uL 0.7-3.1 Monocytes(Absolute) 11:13:00 0.5 x10E3/uL 0.1-0.9 Eos (Absolute) 11:13:00 0.4 x10E3/uL 0.0-0.4 Baso (Absolute) 11:13:00 0.0 x10E3/uL 0.0-0.2 Immature Granulocytes 11:13:00 0 % Not Estab. Immature Grans (Abs) 11:13:00 0.0 x10E3/uL 0.0-0.1 NRBC 11:13:00 Hematology Comments: 11:13:00 Panel Description: Glucose [Mass/volume] in Serum or Plasma --1 hour post 50 g glucose PO Gestational Diabetes Screen 11:13:00 117 mg/dL 65-135 Advance Directives Directive Yes / No Effective Date File Name Unknown Encounters Encounter Practice Location Reason(s) Diagnoses Date Provider Care Team Description For Visit Members Claudette [place] Supervision of Foster Referring In Womens other high risk 0-201 Noar. Provider: Health [place], pregnancies, 8 700 Annette PO Box second [facility] [place] [address], [email or web address] Center n, 700 [place], weeks gestation [place], of 120, [place] [id number], Yuniel [place], [place], [address]. tel: [phone] tel: [phone] , . [id number] tel: [phone] Claudette [place] Supervision of Foster Referring In Womens other high risk 0-201 Nora. Provider: Health MA, pregnancies, 8 700 Annette PO Box second [facility] [place] [address], [email or web address] Center n, 700 [place], weeks gestation [place] Carballo, of 120, [place] [address] [id number], Yuniel Br[place], [place], [address]. tel:[phone] tel: , [place]. [id number] tel: [phone] Claudette Br[place] Supervision of Apr-0 Foster Referring In Womens other high risk 2-201 Nora. Provider: Health PA, pregnancies, 8 700 Annette PO Box second [facility] [place] [address]22, [email or web address] Center n, 700 [place], weeks gestation [place] Carballo, of 120, Center , [id number], Yuniel Br[place], [place], [address]. tel: tel: , [place]. [id number] tel: [phone] Claudette Br[place] Supervision of Apr-0 Foster Referring In Womens Ultrasound other high risk 2-201 Nora. Provider: Health GUNJAN, pregnancies, 8 700 Annette PO Box second [facility] [place] 1522, trimesterMatern Center n, 700 [place], care for oth or [place] Carballo, susp poor fetl 120, Center , [id number], grth, 2nd [facility], [place], unsp18 [place], [address]. tel: gestation of tel: , [place]. [id number] tel: [phone] Claudette Br[place] Matern care for Mar-0 Foster Referring In Womens oth or susp poor 7-201 Nora. Provider: Asha HOLLINS, fetl grth, 2nd 8 700 Annette PO Box tri, [id number] [facility] [place] 1522, weeks gestation Center n, 700 [place], of [place] Carballo, 120, Center , [id number], Yuinel [place], [place], [address]. tel:[phone] tel: , [place]. [id number] tel: [phone] Claudette [place] Supervision of Feb-0 Foster Referring In Womens other high risk 7-201 Nora. Provider: Health GUNJAN, pregnancies, 8 700 [address]nette PO Box first [facility] [place] 1522, [id number] Center n, 700 [place], weeks gestation [place] Carballo, of 120, Center , [id number], [place], [place], [address]. tel:[phone] tel: , [place]. [id number] tel: [phone] Claudette [place] Supervision of Foster Referring In Womens other high risk 0-201 Nora. Provider: Asha HOLLINS, pregnancies, 8 700 Annette PO Box first [facility] 1522, trimesterLess Center n, 700 [place], than 8 weeks , [facility], gestation of 120, Center , , [place], [place], [place], [address]. tel:[phone] tel: , [place]. [id number] tel: [phone] [facility] Encntr for Foster Referring In Womens suprvsn of 7-201 Nora. Provider: Asha HOLLINS, normal 7 700 Annette PO Box , unsp, [facility] 1522, unsp trimester Center n, 700 [place], , [facility], 120, [place] , [id number], Yuniel [place], [place], [address]. tel:[phone] tel: , [place]. [id number] tel: [phone] Claudette [place] Irregular Menses Aug- Foster In Womens 6-201 Nora. Asha HOLLINS, 7 700 PO Box [facility] 1522, [address] Dr Tyree, [facility], 120, , [place], [place], tel:[phone] , [place]. tel: [phone] Claudette [place] Abnormal Pap, Apr- Foster Referring In Womens LSILAbnormal 7-201 Nora. Provider: Asha HOLLINS, Pap, 7 700 Annette PO Box LSILEncounter [facility] 1522, for Center n, 700 [place], test, result [facility] JANNETTE, negative 120, Center , [id number], Yuniel [place], [place], [address]. tel: tel: , [place]. [phone] tel: [phone] Claudette Br[place] Pap Smear Aug-0 Foster Referring In Womens Screening, Nora. Provider: Asha HOLLINS, CervixEncounter 7 700 Annette PO Box for initial [facility] [place] [address], prescription of Center n, 700 [place], breanne Carballo, [facility], pillsPostpartum 120, [place] , , Follow-Up, Yuniel [place], [place], [address]. tel:[phone] tel: , [place]. [id number] tel: [phone] Claudette Br[place] False labor Vignesh- Foster Referring In Womens before 37 Nora. Provider: Asha HOLLINS, completed weeks 7 700 Annette PO Box of gest, third [facility] [place] 1522, tri Center n, [address] Dr [address], [facility], 120, [place] , , Yuniel Br[place], [place], [address]. tel:[phone] tel: , US. [id number] tel: [phone] Claudette [place] January- Foster Referring In Womens Nora. Provider: Asha HOLLINS, 7 700 [address]nette PO Box [facility] [place] [address], [facility], [facility] Dr Tyree, [facility], 120, [place] , [id number], Yuniel [place], [place], [address]. tel:[phone] tel: , [place]. [id number] tel: [phone] Claudette [place] Encounter for Mar-2 Foster In Womens oth general cnsl Nora. Asha HOLLINS, and advice on 6 700 PO Box procreation Medical 1522, [place] Dr Tyree, [facility], 120, [id number], [place], [place], tel:[phone] , [place]. tel: [phone] Claudette [place] Left lower Apr-1 Resendez In Womens quadrant pain Malaika. Asha HOLLINS, 6 700 PO Box Medical 1522, [place] [address]ree, [place], 120, [id number], [place], tel:[phone] , [place]. tel:[phone] [facility] Left lower Apr-1 Foster In Womens Ultrasound quadrant pain 1-201 Nora. Health PA, 6 700 PO Box Medical 1522, [place] [address] [place]ree, [place], 120, [id number], [place], tel:[phone] , [place]. tel: [phone] [facility] Left lower Apr-0 Foster Referring In Womens quadrant 8-201 Nora. Provider: Health GUNJAN, painEncntr for 6 700 Nora Foster PO Box labor and delivery registered nurse exam Medical K, 700 1522, (general) [place] Lina Clements, (routine) w , [facility] Dr BHATIA, abnormal 120, [place] 120, [id number], [facility] [place], [place], tel:+2 Cervix [phone]. , [place]. tel:+ tel: [phone] [facility] Sep-1 Resendez In Womens 9-201 Malaika. Health PA, 2 700 PO Box Medical 1522, [place] [address] Tyree, [facility] [place], 120, [id number], [facility] [place], tel:[phone] , [place]. tel: [phone] Family History Family Member Diagnosis Age At [...] name Insurance type Covered democrat ID Authorization(s) [facility] [id number] [place] Medicaid [place] [id number] [place] Medicaid [place] [id number] [facility] Select [id number] [place] - Medicaid MC [id number] Social History Type Description Quantity Date Captured Alcohol Use Details No Caffeine Use Details Unknown Tobacco Use Status Unknown Smoking Status Never smoker Vital Signs Date / Height Weight BMI Pulse Blood Temperature Respiratory Body Head BMI Time: Rate Pressure Rate Surface Circumference percentile Area 124.80 21.2 lbs 2 mm[Hg] 10:24 kg/m AM eter (2) Chief Complaint And Reason For Visit Unknown Chief Complaint And Reason For Visit Reason For Referral Reason For Referral Unknown Plan Of Care Date Type Action Status Appointment Rosita Zhou BOOKED Future Order: Radiology Order Complete OB Ultrasound > 14 Weeks Ordered ([id number]) Future Order: Lab Order Pap Smear With HPV Reflex If ASCUS Ordered ([id number]) Future Order: Radiology Order Pelvic Ultrasound ([id number]) Ordered Date Type Problem Goal Intervention Status [...]
--- OUTSIDE RECORDS SUMMARY | 2018-05-16 06:31 | External Medical Summary | Continuity of Care Document ---
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 Provider: Asha HOLLINS, pregnancies, 8 [address] second Medical [place] [address], [id number] Center n, 700 [place], weeks gestation [place], of 120, Center , [id number], Yuniel Brice, [place], [address]. tel:[phone] tel: , [place]. [id number] tel: [phone] Claudette Brice Supervision of Dec-0 Foster Referring In Womens Ultrasound other high risk 2-201 Nora. Provider: Asha HOLLINS, pregnancies, 8 700 [address] PO Box second [facility] [place] [address], trimesterMatern Center n, 700 [place], care for oth or [place], susp poor fetl 120, Center , [id number], grth, 2nd Yuniel crockett [place], [id number] [place], [address]. tel: gestation of [phone] tel: , [place]. [id number] tel: [phone] Claudette Brice Matern care for Nov-0 Foster Referring In Womens oth or susp poor 7-201 Nora. Provider: Asha HOLLINS, fetl grth, 2nd 8 700 [address]net[address] PO Box tri, [id number] Medical [place] [address], weeks gestation Center n, 700 [place], of , [facility], 120, Center , [id number], [place], [place], [address]. tel:[phone] tel: , [place]. [id number] tel: [phone] Claudette Brice Supervision of Oct-0 Foster Referring In Womens other high risk 7-201 Nora. Provider: Health GUNJAN, pregnancies, 8 700 [address]te PO Box first Medical [place] [address], [id number] Center n, 700 [place], weeks gestation , [facility], of 120, Center , [id number], [place], [place], [address]. tel:[phone] tel: , [place]. [id number] tel: [phone] Claudette Brice Supervision of Sep- Foster Referring In Womens other high risk 0-201 Nora. Provider: Health GUNJAN, pregnancies, 8 700 [address]nette PO Box first Medical [place] [address], trimesterLess Center n, 700 [place], than 8 weeks , [facility], gestation of 120, Center , , Yuniel Brice, [place], [address]. tel:[phone] tel: , US. [id number] tel: [phone] [facility] Encntr for Dec-2 Foster Referring In Womens suprvsn of 7-201 Nora. Provider: Health GUNJAN, normal 7 700 [address]nette PO Box , unsp, Medical [place] [address], unsp trimester Center n, [address], [facility], 120, Center , [id number], [place], [place], [address]. tel:[phone] tel: , [place]. [id number] tel: [phone] Claudette Brice Irregular Menses Dec-2 Foster In Womens 6-201 Nora. Health GUNJAN, 7 700 PO Box Medical [address], [address] Dr Tyree, [facility] [place], 120, [id number], [place], [place], tel:[phone] , [place]. tel: [phone] Claudette Brice Abnormal Pap, Aug- Foster Referring In Womens LSILAbnormal 7- Nora. Provider: Asha HOLLINS, Pap, 7 700 Annette PO Box [facility] 1522, for Center n, 700 [place], test, result , [facility], negative 120, [place] , [id number], Yuniel Brice, [place], [address]. tel: tel: , [place]. [id number] tel: [phone] Claudette Brice Pap Smear Aug-0 Foster Referring In Womens Screening, 4- Nora. Provider: Asha HOLLINS, [facility] 7 700 Annette PO Box for initial [facility] 1522, prescription of Center n, 700 [place], contraceptive , [facility], pillsPostpartum 120, [place] , [id number], Follow-Up, Yuniel [place], [place], [address]. tel:[phone] tel: , [place]. [id number] tel: [phone] Claudette Brice False labor Vignesh- Foster Referring In Womens before 37 3-201 Nora. Provider: Asha HOLLINS, completed weeks 7 700 Annette PO Box of 1522, tri Center n, [address] Dr [address], [facility], 120, [place] , [id number], Yuniel Brice, [place], [address]. tel: tel: , [place]. [phone] tel: [phone] Claudette Brice January- Foster Referring In Womens 7-201 Nora. Provider: Asha HOLLINS, 7 700 Annette PO Box [facility] 1522, Center n, [address] Dr [address]ree, [facility], 120, Center , [id number], Yuniel Brice, [place], [address]. tel:[phone] tel: , [place]. [id number] tel:[phone] [facility] Encounter for Mar-2 Foster In Womens oth general cnsl 7-201 Nora. Health PA, and advice on 6 700 PO Box procreation Medical 1522, [place] [address]ree, [place], 120, [id number], [place], tel: [phone] , [place]. tel: [phone] [facility] Left lower Apr-1 Resendez In Womens quadrant pain 1-201 Malaika. Health PA, 6 700 PO Box Medical [address], [place] [address]ree, [place], 120, [id number], [place], [place], tel:[phone] , [place]. tel: [phone] Claudette Brice Left lower Apr-1 Foster In Womens Ultrasound quadrant pain 1-201 Nora. Health PA, 6 700 PO Box Medical 1522, [place] [address] Tyree, [facility] [place], 120, , [facility] [place], tel:[phone] , [place]. tel: [phone] Claudette Brice Left lower Apr-0 Foster Referring In Womens quadrant 8-201 Nora. Provider: Health PA, painEncntr for 6 700 Nora Foster PO Box copper plater exam Medical [place], 700 1522, (general) [place] Lina Clements, (routine) w , [facility] Dr BHATIA, abnormal 120, [place] 120, , findingsPap Yuniel Morris, Smear [place], [place], tel: Cervix [phone]. , [place]. tel: tel: [phone] [facility] Sep-1 Resendez In Womens 9-201 Malaika. Health PA, 2 700 PO Box Medical 15[address], [place] [address]ree, [place], 120, , [facility] [place], tel:[phone] , [place]. tel: [phone] Family History Family Member Diagnosis Age At [...] name Insurance type Covered democrat ID Authorization(s) [facility] [id number] [employer] [place] [id number] [place] [id number] [facility] [id number] [place] [id number] Social History Type Description Quantity Date Captured Alcohol Use Details No Caffeine Use Details Unknown Tobacco Use Status Unknown Smoking Status Never smoker Vital Signs Date / Height Weight BMI Pulse Blood Temperature Respiratory Body Head BMI Time: Rate Pressure Rate Surface Circumference percentile Area 118.60 20.1 122/74 2018 lbs 7 mm[Hg] 1:41 kg/m PM eter (2) Chief Complaint And Reason For Visit Unknown Chief Complaint And Reason For Visit Reason For Referral Reason For Referral Unknown Plan Of Care Date Type Action Status Appointment Rosita Zhou BOOKED Future Order: Radiology Order Complete OB Ultrasound > 14 Weeks Ordered ([id number]) Future Order: Lab Order Pap Smear With HPV Reflex If ASCUS Ordered ([id number]) Future Order: Radiology Order Pelvic Ultrasound ([id number]) Ordered Date Type Problem Goal Intervention Status [...]
--- OUTSIDE RECORDS SUMMARY | 2018-05-16 06:31 | External Medical Summary | Continuity of Care Document ---
:1990 Author Organization [facility] Address [address] [place], [place] [id number] Phone Care Team Providers Name Role Phone Annette Gupta MD Unavailable Unavailable Allergies, Adverse Reactions, Alerts Substance Reaction Severity Status No Known Drug Allergies Unknown Active Medications Medication Instructions Dosage Effective Dates Status Comments (start - stop) Aviane 0.1 mg-20 take 1 tablet by Not Available - Active mcg tablet oral route every day Problems Condition Effective Dates (start - stop) Clinical Status Abnormal Pap, LSIL Abnormal Pap, LSIL Encounter for test, result - negative Pap Smear Screening, Cervix - Encounter for initial prescription of contraceptive pills Follow-Up, Routine False labor before 37 completed weeks - of gest, third tri Left lower quadrant pain 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 (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) - (routine) w 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 Pap Smear Screening, Cervix Left lower quadrant pain - Left lower quadrant pain Encounter for ot general cnsl and advice on procreation Cervical Dysplasia, Mild - Active Active Procedures Procedure Date Urine test Colposcpy Of Cervix W/ Upper/adj Vagina; W/Bx Of Cervix & Endocervical 2016 Curettage Procedure Only Visit Results Test Name Date and Time Measure Units Reference Range Abnormal Flag Comments Unknown Advance Directives Directive Yes / No Effective Date File Name Unknown Encounters Encounter Practice Location Reason(s) Diagnoses Date Provider Care Team Description For Visit Members Claudette Brice abnormal Abnormal Pap, Foster Referring In Womens pap smear LSILAbnormal Nora. Provider: Asha HOLLINS, (chief Pap, 7 700 [address]te PO Box complaint) [facility], for Center n, [address], test, result , [facility], negative 120, [place] , [id number], [place], [place], [address]. tel:[phone] tel:+ , [place]. [id number] tel: [phone] Claudette Brice Pap Smear Apr- Foster Referring In Womens Screening, Nora. Provider: Asha HOLLINS, CervixEncount 7 700 [address]nette PO Box for initial Medical [facility] 1522, prescription of Center n, [address], contraceptive , [facility], pillsPostpartum 120, [place] , [id number], Follow-Up, Y[place], [place], [address]. tel:[phone] tel: , [place]. [phone] tel: [phone] Claudette Brice False labor Vignesh- Foster Referring In Womens before 37 Nora. Provider: Asha HOLLINS, completed weeks 7 700 Annette PO Box of gest, third [facility] 1522, tri Center n, [address] Dr [address], [facility], 120, [place] , [id number], [place], [place], [address]. tel:[phone] tel:+ , [place]. [id number] tel: [phone] Claudette Brice January- Foster Referring In Womens Nora. Provider: Asha HOLLINS, 7 700 [address]nette PO Box Medical [facility] 1522, Center n, [address] Dr [address]ree, [facility], 120, [place] , [id number], Yuniel Brice, [facility] [place], [address]. tel:[phone] tel: , US. [id number] tel: [phone] Claudette Brice Encounter for Foster In Womens oth general cnsl Nora. Health PA, and advice on 6 700 PO Box procreation Medical 1522, [place] Dr Tyree, [place], 120, [id number], [place], [place], tel:+ [phone] , [place]. tel: [phone] [facility] Left lower Apr-1 Resendez In Womens quadrant pain 1-201 Malaika. Health PA, 6 700 PO Box Medical [address], [address], [place], 120, [id number], [place], tel:[phone] , [place]. tel: [phone] Claudette Brice Left lower Apr-1 Foster In Womens Ultrasound quadrant pain 1-201 Nora. Health PA, 6 700 PO Box Medical 15[address], [place] Dr Tyree, [facility] [place], 120, [id number], [facility] [place], tel:[phone] , [place]. tel: [phone] Claudette Brice Left lower Apr-0 Foster Referring In Womens quadrant 8-201 Nora. Provider: Health GUNJAN, painEncntr for 6 700 Nora Foster PO Box mechanical maintenance exam Medical K, 700 1522, (general) [facility] Tyree, (routine) w , [facility] Dr BHATIA, abnormal 120, [place] 120, [id number], findingsPap [facility], Smear [place], [place], tel:+ Cervix [phone]. , [place]. tel: tel: [phone] Claudette Brice Sep-1 Resendez In Womens 9-201 Malaika. Health PA, 2 700 PO Box Medical 15[address], [place] Dr Tyree, [place], 120, [id number], [facility] [place], tel:+ [phone] , [place]. tel: [phone] Family History Family Member Diagnosis Age At [...] Insurance type Covered green party ID Authorization(s) [facility] Select [id number] [employer] [place] Medicaid [place] [id number] [place] [id number] [facility] [id number] [place] Medicaid [place] [id number] Social History Type Description Quantity Date Captured Alcohol Use Details Unknown Caffeine Use Details Unknown Tobacco Use Status Unknown Smoking Status Never smoker Vital Signs Date / Height Weight BMI Pulse Blood Temperature Respiratory Body Head BMI Time: Rate Pressure Rate Surface Circumference percentile Area 117.60 75 116/79 -2017 lbs /min mm[Hg] 8:42 AM Chief Complaint And Reason For Visit Most recent encounter only, dated '05/12/2017 08:30'. abnormal pap smear (chief complaint). Description: Patient had an abnormal pap on 04/29/2017. Levelof severity is LSIL. Her last normal pap smear was on 01/02/2016. Recent diagnostic studies includeCervical Biopsy done in 2012 (MELISSA I), and ECC done in 2012 (normal). She has had no recent cervicaltreatment. Patient has received part of the Gardasil vaccination series. She's on the first week of her OCPs. Reason For Referral Reason For Referral Unknown Plan Of Care Date Type Action Status Future Order: Lab Order Pap Smear With HPV Reflex If ASCUS Ordered (WPMPap1) Future Order: Radiology Order Pelvic Ultrasound ([id number]) Ordered Date Type Problem Goal Intervention Status Start Date Unknown. History Of Present Illness Encounter Date Complaint History Of Present Illness abnormal pap smear Patient had an abnormal pap on 04/29/2017. Level of severity is LSIL. Her last normal pap smear was on 01/02/2016. Recent diagnostic studies include Cervical Biopsy done in 2012 (MELISSA I), and ECC done in 2012 (normal). She has had no recent cervical treatment. Patient has received part of the Gardasil vaccination series. She's on the first week of her OCPs. Functional Status Encounter Date Functional Assessment Cognitive Assessment Unknown Medications Administered Medication Instructions Dosage Effective Dates (start - stop) Status Comments Drug Treatment Unknown Instructions Date Instruction Additional Information labor signs group B strep screening
--- OUTSIDE RECORDS SUMMARY | 2018-05-16 06:31 | External Medical Summary | Continuity of Care Document ---
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 Pap Smear Screening, Cervix Left lower quadrant pain - Left lower quadrant pain Abnormal Pap, LSIL Abnormal Pap, LSIL Encounter for test, result - negative Encounter for ot general cnsl and advice on procreation Cervical Dysplasia, Mild - Active Active Procedures Procedure Date Visit No-Charge Pap Smear handling/transport Results Test Name Date and Time Measure Units Reference Range Abnormal Flag Comments Panel Description: Pap Smear With HPV Reflex If ASCUS Document Advance Directives Directive Yes / No Effective Date File Name Unknown Encounters Encounter Practice Location Reason(s) Diagnoses Date Provider Care Team Description For Visit Members [facility]iel Abnormal Pap, Foster Referring In [facility] LSILAbnormal 7-201 Nora. Provider: Health PA, Pap, 7 700 [address] [facility], for Center n, [address], test, result , [facility], negative 120, [place] , [id number], [place], [place], [address]. tel:[phone] tel: , [place]. [id number] tel: [phone] Claudette Brice Pap Smear Aug-0 Foster Referring In Womens incision Screening, Nora. Provider: Health GUNJAN, check CervixEncounter 7 700 [address]nette PO Box (chief for initial Medical [facility] 1522, complaint)p prescription of Center n, [address], ostpartum contraceptive , [facility], exam (chief pillsPostpartum 120, [place] , , complaint) Follow-Up, Yun[place], [place], [address]. tel:[phone] tel: , [place]. [id number] tel: [phone] Claudette Brice False labor Vignesh- Foster Referring In Womens before 37 3- Nora. Provider: Asha HOLLINS, completed weeks 7 700 Annette PO Box of gest, [facility] 1522, tri Center n, [address], [facility], 120, [place] , [id number], [place], [place], [address]. tel:[phone] tel: , US. [id number] tel: [phone] Brice January- Foster Referring In Womens - Nora. Provider: Asha HOLLINS, 7 700 [address]nette PO Box [facility], Center n, [address], [facility], 120, [place] , [id number], [place], [place], [address]. tel: tel: , [place]. [phone] tel: [phone] Claudette Brice Encounter for Mar- Foster In Womens oth general cnsl Nora. Health PA, and advice on 6 700 PO Box procreation Medical 1522, [place] Dr [address], [place], 120, [id number], [place], tel:[phone] , [place]. tel: [phone] [facility] Left lower Apr-1 Resendez In Womens quadrant pain 1-201 Malaika. Health PA, 6 700 PO Box Medical 15[address], [place] [address] Tyere, [place], 120, [id number], [place], tel:[phone] , [place]. tel: [phone] Claudette Brice Left lower Apr-1 Foster In Womens Ultrasound quadrant pain 1-201 Nora. Health PA, 6 700 PO Box Medical 1522, [place] [address]ree, [place], 120, [id number], [facility] [place], tel:[phone] , [place]. tel: [phone] Claudtete Brice Left lower Apr-0 Foster Referring In Womens quadrant 8-201 Nora. Provider: Health GUNJAN, painEncntr for 6 700 Nora Foster PO Box legal secretary exam Medical K, 700 1522, (general) [facility] Tyree, (routine) w , [facility] Dr BHATIA, abnormal 120, [place] 120, [id number], [facility]Pap [facility] Smear Screening, [place], [place], tel:+[phone] Cervix [phone]. , [place]. tel: tel: [phone] Claudette Brice Sep-1 Resendez In Womens 9-201 Malaika. Health PA, 2 700 PO Box Medical 15[address], [place] [address], [place], 120, [id number], [place], tel:[phone] , [place]. tel: [phone] Family History Family Member Diagnosis Age At [...] name Insurance type Covered democrat ID Authorization(s) [facility] [id number] [employer] [place] [id number] [employer] [place] [id number] [facility] [id number] [employer] [place] [id number] Social History Type Description Quantity Date Captured Alcohol Use Details Unknown Caffeine Use Details Unknown Tobacco Use Status Unknown Smoking Status Never smoker Vital Signs Date / Height Weight BMI Pulse Blood Temperature Respiratory Body Head BMI Time: Rate Pressure Rate Surface Circumference percentile Area 118.00 69 116/73 97.60 lbs /min mm[Hg] 10:37 AM Chief Complaint And Reason For Visit Unknown Chief Complaint And Reason For Visit Reason For Referral Reason For Referral Unknown Plan Of Care Date Type Action Status Future Order: Lab Order Pap Smear With HPV Reflex If ASCUS Ordered (WPMPap1) Future Order: Radiology Order Pelvic Ultrasound ([id number]) Ordered Date Type Problem Goal Intervention Status Start Date Unknown. History Of Present Illness Encounter Date Complaint History Of Present Illness incision check exam On 03/20/2017 she had a of a 36 week 6 day male (Jackie Gutierrez) weighing 6# 5 oz. (2868g) at [facility] by Oralia Nobles MD. Apgars: 7/9. She was induced using Pitocin due to . The delivery was complicated by a 1st degree laceration , premature labor, premature rupture of membranes and pit augmentation. Her was complicated by elevated 1 hr, normal 3 hr GTT. Patient is formula feeding. She is not having any bleeding. Patient denies breast pain, constipation, depression, diarrhea and dysuria. Her last pap smear was WNL on 01/02/2016. Functional Status Encounter Date Functional Assessment Cognitive Assessment Unknown Medications Administered Medication Instructions Dosage Effective Dates (start - stop) Status Comments Drug Treatment Unknown Instructions Date Instruction Additional Information labor signs group B strep screening
--- OUTSIDE RECORDS SUMMARY | 2018-05-16 06:31 | External Medical Summary | Continuity of Care Document ---
:1990 Author Organization [facility] Address [address] [place], [place] [id number] Phone Care Team Providers Name Role Phone [...] tri Left lower quadrant pain Encntr for medical doctor exam (general) - (routine) w 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 Pap Smear Screening, Cervix Left lower quadrant pain - Left lower quadrant pain Abnormal Pap, LSIL Abnormal Pap, LSIL Encounter for test, result - negative Encounter for oth general cnsl and advice on procreation Cervical Dysplasia, Mild - Active Active Procedures Procedure Date Unknown Results Test Name Date and Time Measure Units Reference Range Abnormal Flag Comments Unknown Advance Directives Directive Yes / No Effective Date File Name Unknown Encounters Encounter Practice Location Reason(s) Diagnoses Date Provider Care Team Description For Visit Members Claudette Brice Abnormal Pap, Foster Referring In [facility] LSILAbnormal 7-201 Nora. Provider: Health GUNJAN, Pap, 7 700 [address]te [address] [facility] 1522, for Center n, 700 [place]ree, test, result Dr, [facility], negative 120, [place] , [id number], Yuniel Brice, [place], [address]. tel: tel: , [place]. [id number] tel: [phone] Claudette Brice Aug-0 Foster In Womens 8-201 Nora. Asha HOLLINS, 7 700 PO Box Medical [address], [address] Tyree, [facility] [place], 120, [id number], [place], tel:[phone] , [place]. tel: [phone] Claudette Br[place] Pap Smear Aug-0 Foster Referring In Womens Screening, 4-201 Nora. Provider: Asha HOLLINS, CervixEncounter 7 700 Annette PO Box for initial Medical [place] 1522, prescription of Center n, 700 [place]ree, contraceptive , [facility], pillsPostpartum 120, [place] , [id number], Follow-Up, Yuniel [place], [place], [address]. tel:[phone] tel: , [place]. [id number] tel: [phone] Claudette Br[place] False labor Vignesh-1 Foster Referring In Womens before 37 3-201 Nora. Provider: Asha HOLLINS, completed weeks 7 700 Annette PO Box of gest, [facility], tri Center n, [address] Dr Tyree, [facility], 120, [place] , [id number], Yuniel Brice, [place], [address]. tel: tel: , [place]. [phone] tel: [phone] Claudette Br[place] January-1 Foster Referring In Womens 7-201 Nora. Provider: Ahsa HOLLINS, 7 700 Annette PO Box [facility], Center n, [address] Dr Tyree, [facility], 120, [place] , [id number], Yuniel Brice, [place], [address]. tel:[phone] tel: , [place]. [id number] tel: [phone] Claudette Br[place] Encounter for Mar-2 Foster In Womens oth general cnsl 7-201 Nora. Health PA, and advice on 6 700 PO Box procreation Medical 1522, [place] Dr Tyree, [place], 120, [id number], [place], tel:[phone] , [place]. tel: [phone] Claudette [place] Left lower Apr-1 Resendez In Womens quadrant pain 1-201 Malaika. Health PA, 6 700 PO Box Medical 1522, [place] Dr Tyree, [facility] [place], 120, [id number], [place], tel:[phone] , [place]. tel: [phone] Claudette [place] Left lower Apr-1 Foster In Womens Ultrasound quadrant pain 1-201 Nora. Health [place], 6 700 PO Box Medical [address], [address], [facility] [place], 120, , [facility] [place], tel:[phone] , [place]. tel: [phone] Claudette [place] Left lower Apr-0 Foster Referring In Womens quadrant 8-201 Nora. Provider: Health PA, painEncntr for 700 Nora Foster PO Box medical doctor exam Medical [place], 700 1522, (general) [place] Lina Clements, (routine) w , [facility] [place], abnormal 120, [place] 120, [id number], findingsPap [facility], Smear Screening, [place], tel: Cervix [phone]. , [place]. tel:+ tel: [phone] Claudette Br[place] Sep-1 Resendez In Womens 9-201 Malaika. Health [place], 2 700 PO Box Medical 1522, [place] Dr Tyree, [facility] [place], 120, , [facility] [place], tel:[phone] , [place]. tel: [phone] Family History Family Member Diagnosis Age At [...] Record Payers Payer name Insurance type Covered republican ID Authorization(s) [facility] [id number] [employer] [place] Medicaid [place] [id number] [employer] [place] [id number] [facility] [id number] [employer] [place] Medicaid [place] [id number] Social History Type Description Quantity Date Captured [...] (WPMPap1) Future Order: Radiology Order Pelvic Ultrasound ([id number]) Ordered Date Type Problem Goal Intervention Status [...]
--- OUTSIDE RECORDS SUMMARY | 2018-05-16 06:31 | External Medical Summary | Continuity of Care Document ---
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 tel:[phone] tel:+ , [place]. [id number] tel: [phone] Claudette Br[place] Pap Smear Apr- Foster Referring In Womens Screening, Nora. Provider: Asha HOLLINS, CervixEncount 7 700 Annette PO Box for initial Medical [facility] 1522, prescription of Center n, 700 [place]ree, contraceptive , [facility], pillsPostpartum 120, [place] , [id number], Follow-Up, Yuniel [place], [place], [address]. tel:[phone] tel: , [place]. [id number] tel: [phone] Claudette Br[place] False labor Vignesh- Foster Referring In Womens before 37 Nora. Provider: Asha HOLLINS, completed weeks 7 700 Annette PO Box of gest, third [facility] 1522, tri Center n, [address] Dr Tyree, [facility], 120, [place] , [id number], [place], [place], [address]. tel:[phone] tel:+ , [place]. [id number] tel: [phone] Claudette Br[place] January- Foster Referring In Womens Nora. Provider: Asha HOLLINS, 7 700 Annette PO Box Medical [facility] 1522, Center n, [address] Dr Tyree, [facility], 120, [place] , [id number], Yuniel Brice, [place], [address]. tel:[phone] tel: , [place]. [phone] tel: [phone] Claudette Br[place] Encounter for Foster In Womens oth general cnsl Nora. Health PA, and advice on 6 700 PO Box procreation Medical 1522, [place] Dr Tyree, [place], 120, [id number], [place], [place], tel:[phone] , [place]. tel: [phone] Associates Yuniel Left lower Apr-1 Resendez In Womens quadrant pain 1-201 Malaika. Health PA, 6 700 PO Box Medical [address], [address], [place], 120, [id number], [place], tel:[phone] , [place]. tel: [phone] Claudette Br[place] Left lower Apr-1 Foster In Womens Ultrasound quadrant pain 1-201 Nora. Health PA, 6 700 PO Box Medical 15[address], [place] Dr Tyree, [facility] [place], 120, [id number], [facility] [place], tel:[phone] , [place]. tel: [phone] Claudette Birce Left lower Apr-0 Foster Referring In Womens quadrant 8-201 Nora. Provider: Health GUNJAN, painEncntr for 6 700 Nora Foster PO Box powder compounder exam Medical K, 700 1522, (general) [facility] Tyree, (routine) w , [facility] Dr BHATIA, abnormal 120, [place] 120, [id number], [facility]Pap [facility], [place], [place], tel:+ Cervix [phone]. , [place]. tel: tel: [phone] Claudette Br[place] Sep-1 Resendez In Womens 9-201 Malaika. Health PA, 2 700 PO Box Medical [address], [place] Dr Tyree, [place], 120, [id number], [facility] [place], tel:+ [phone] , [place]. tel: [phone] Family History Family Member Diagnosis Age At [...] Record Payers Payer name Insurance type Covered libertarian ID Authorization(s) [facility] [id number] [employer] [place] [id number] [employer] [place] Medicaid [place] [id number] [facility] [id number] [employer] [place] - Medicaid [place] [id number] Social History Type Description Quantity Date Captured [...] (WPMPap1) Future Order: Radiology Order Pelvic Ultrasound ([id number]) Ordered Date Type Problem Goal Intervention Status [...]
--- OUTSIDE RECORDS SUMMARY | 2018-05-16 06:31 | External Medical Summary | Continuity of Care Document ---
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 Provider: Health GUNJAN, pregnancies, 8 700 Annette PO Box second Medical [place] 1522, Center n, 700 [place], weeks gestation [place], of 120, [place] , [id number], Yuniel Brice, [place], [address]. tel:[phone] tel: , [place]. [id number] tel: [phone] Claudette Brice Supervision of Apr-0 Foster Referring In Womens other high risk 2-201 Nora. Provider: Health PA, pregnancies, 8 700 Annette PO Box second Medical [place] 1522, [email or web address] Center n, 700 [place], weeks gestation [place] Car[place], of 120, [place] , [id number], Yuniel Brice, [place], [address]. tel: [phone] tel: , US. 6304074 tel: [phone] Claudette Brice Supervision of Apr-0 Foster Referring In Womens Ultrasound other high risk 2-201 Nora. Provider: Health GUNJAN, pregnancies, 8 700 Annette PO Box second Medical [place] 1522, trimesterMatern Center n, 700 [place], care for oth or [place], susp poor fetl 120, Center , [id number], [facility], 2nd [facility], Yuniel Brice, [id number] [place], [address]. tel: gestation of [phone] tel: , [place]. [id number] tel: [phone] Brice Matern care for Mar-0 Foster Referring In Womens oth or susp poor Nora. Provider: Health GUNJAN, fetl grth, 2nd 8 700 Annette PO Box tri, [id number] Medical [place] 1522, weeks gestation Center n, 700 [place], of [place] Car[place]o, 120, Center , [id number], Yuniel Brice, [place], [address]. tel: tel: , [place]. [id number] tel: [phone] Claudette Brice Supervision of Foster Referring In Womens other high risk Nora. Provider: Asha HOLLINS, pregnancies, 8 700 Annette PO Box first Medical [place] 1522, [email or web address] Center n, 700 [place], weeks gestation [place] Car[place], of 120, Center Dr [id number], Yuniel Brice, [place], [address]. tel: tel: , [place]. [id number] tel: [phone] Br[place] Supervision of Foster Referring In Womens other high risk 0-201 Nora. Provider: Health GUNJAN, pregnancies, 8 700 Annette PO Box first Medical [place] 1522, trimesterLess Center n, 700 [place], than 8 weeks [place] Car[place], gestation of 120, Center , , Yuniel Brice, [place], [address]. tel: tel: , [place]. [phone] tel: [phone] Claudette Br[place] Encntr for Aug- Foster Referring In Womens suprvsn of Nora. Provider: Asha HOLLINS, normal 7 700 Annette PO Box , unsp, [facility], unsp trimester Center n, [address] Dr Tyree, [facility], 120, [place] , , Yuniel Brice, [place], [address]. tel:[phone] tel: , US. [id number] tel: [phone] Associates Y[facility]iel Irregular Menses Dec-2 Foster In Womens 6-201 Nora. Asha HOLLINS, 7 700 PO Box Medical 1522, [address] Dr Tyree, [facility], 120, [id number], [place], tel:[phone] , [place]. tel: [phone] Associates Y[facility]iel Abnormal Pap, Apr-1 Foster Referring In Womens LSILAbnormal 7-201 Nora. Provider: Asha HOLLINS, Pap, 7 700 Annette PO [facility], for Center n, 700 [place], test, result , [facility], negative 120, [place] , [id number], Yuniel Brice, [place], [address]. tel:[phone] tel: , [place]. [id number] tel: [phone] Associates [facility]iel Pap Smear Aug-0 Foster Referring In Womens Screening, 4-201 Nora. Provider: Asha HOLLINS, CervixEncounter 7 700 Annette PO Box for initial Medical [facility] 1522, prescription of Center n, 700 [place], contraceptive , [facility], pillsPostpartum 120, [place] , , Follow-Up, Yuniel [place], [place], [address]. tel:[phone] tel: , [place]. [id number] tel: [phone] Associates Y[facility]iel False labor Vignesh-1 Foster Referring In Womens before 37 3-201 Nora. Provider: Asha HOLLINS, completed weeks 7 700 Annette PO Box of gest, third [facility] 1522, tri Center n, [address] Dr Tyree, [facility], 120, [place] , [id number], Y[place], [place], [address]. tel:[phone] tel: , [place]. [id number] tel: [phone] Claudette Brice May- Foster Referring In Womens 7-201 Nora. Provider: Health GUNJAN, 7 700 Annette PO Box Medical [facility] 1522, Center n, [address] Dr Tyree, [facility] [place], 120, [place] , [id number], [place], [place], [address]. tel:[phone] tel:[phone] , [place]. [id number] tel: [phone] Associates Yuniel Encounter for Mar-2 Foster In Womens oth general cnsl - Nora. Health PA, and advice on 700 PO Box procreation Medical 1522, [place] Dr Tyree, [facility] [place], 120, , [place], tel:[phone] , [place]. tel: [phone] Associates Yuniel Left lower Apr-1 Resendez In Womens quadrant pain 1-201 Malaika. Health PA, 6 700 PO [facility] 15[address], [place] Dr Tyree, [facility] [place], 120, , [facility] [place], tel:[phone] , [place]. tel: [phone] Claudette [place] Left lower Apr-1 Foster In Womens Ultrasound quadrant pain 1-201 Nora. Health GUNJAN, 6 700 PO Box Medical [address], [place] [address] Tyree, [place], 120, [id number], [place], tel:[phone] , [place]. tel: [phone] Associates Y[facility]iel Left lower Apr-0 Foster Referring In Womens quadrant 8-201 Nora. 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 , [place]. tel: tel: [phone] Associates Yuniel Sep- [place] In Womens 9-201 [facility], 2 700 PO [facility] 1522, [place] [address] Tyree, [place], 120, [id number], [place], tel: [phone] , [place]. tel: [phone] Family History Family Member Diagnosis Age At [...] name Insurance type Covered republican ID Authorization(s) [facility] [id number] [employer] [place] Medicaid [place] [id number] [employer] [place] [id number] [facility] [id number] [employer] [place] Medicaid MC [id number] Social History Type Description Quantity Date Captured Alcohol Use Details No Caffeine Use Details Unknown Tobacco Use Status Unknown Smoking Status Never smoker Vital Signs Date / Height Weight BMI Pulse Blood Temperature Respiratory Body Head BMI Time: Rate Pressure Rate Surface Circumference percentile Area 121.50 20.6 lbs 6 mm[Hg] 3:25 kg/m PM eter (2) Chief Complaint And Reason For Visit Unknown Chief Complaint And Reason For Visit Reason For Referral Reason For Referral Unknown Plan Of Care Date Type Action Status Appointment Rosita Zhou BOOKED Future Order: Radiology Order Complete OB Ultrasound > 14 Weeks Ordered ([id number]) Future Order: Lab Order Pap Smear With HPV Reflex If ASCUS Ordered (WPMPap1) Future Order: Radiology Order Pelvic Ultrasound ([id number]) Ordered Date Type Problem Goal Intervention Status [...]
--- OUTSIDE RECORDS SUMMARY | 2018-05-16 06:31 | External Medical Summary | Continuity of Care Document ---
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 [...] Mild - Active Active Procedures Procedure Date No Charge Sonogram OB Visit No Charge Results Test Name Date and Time Measure Units Reference Range Abnormal Flag Comments Panel Description: OBSTETRIC PANEL WHITE BLOOD CELL 6.8 Thousand/uL 3.8-10.8 N COUNT 14:39:00 RED BLOOD CELL 4.39 Million/uL 3.80-5.10 N COUNT 14:39:00 HEMOGLOBIN 13.2 g/dL 11.7-15.5 N 14:39:00 HEMATOCRIT 38.5 % 35.0-45.0 N 14:39:00 MCV 87.7 fL 80.0-100.0 N 14:39:00 MCH 30.1 pg 27.0-33.0 N 14:39:00 MCHC 34.3 g/dL 32.0-36.0 N 14:39:00 RDW 14.2 % 11.0-15.0 N 14:39:00 PLATELET COUNT 256 Thousand/uL 140-400 N 14:39:00 MPV 10.3 fL 7.5-12.5 N 14:39:00 ABSOLUTE 4610 cells/uL 3470-4005 N NEUTROPHILS 14:39:00 ABSOLUTE 1312 cells/uL 850-3900 N LYMPHOCYTES 14:39:00 ABSOLUTE 435 cells/uL 200-950 N MONOCYTES 14:39:00 ABSOLUTE 401 cells/uL 15-500 N EOSINOPHILS 14:39:00 ABSOLUTE 41 cells/uL 0-200 N BASOPHILS 14:39:00 NEUTROPHILS 67.8 % N 14:39:00 LYMPHOCYTES 19.3 % N 14:39:00 MONOCYTES 6.4 % N 14:39:00 EOSINOPHILS 5.9 % N 14:39:00 BASOPHILS 0.6 % N 14:39:00 ANTIBODY SCREEN, NO ANTIBODIES N RBC W/REFL ID, 14:39:00 DETECTED Reference range TITER AND AG No antibodies detected This assay is a screening test for the detection of red blood cell antibodies. The test is not to be used for pretransfusion screening or for the medical management of an alloimmunized . ABO GROUP O 14:39:00 RH TYPE RH(D) 14:39:00 POSITIVE RPR (DX) W/REFL NON-REACTIVE NON-REACTIV N TITER AND 14:39:00 E CONFIRMATORY TESTING HEPATITIS B NON-REACTIVE NON-REACTIV N SURFACE ANTIGEN 14:39:00 E RUBELLA ANTIBODY 1.35 index N Index (IGG) 14:39:00 Interpretation ----- <0.90 Not consistent with Immunity 0.90-0.99 Equivocal > or=1.00 Consistent with Immunity The presence of rubella IgG antibody suggests immunization or past or current infection withrubella virus.Test performed at [facility] [id number] [place] [address]Jhiazkr r: ASHLEE CARLISLE DO,MPH Panel Description: HIV 1/2 ANTIGEN/ANTIBODY,FOURTH GENERATION W/RFL HIV NON-REACTIVE NON-REACTIVE N HIV-1 antigen and HIV-1/HIV- 2 antibodies were AG/AB, 14:39:00 notdetected. There is no laboratory evidence of 4TH GEN HIVinfection. PLEASE NOTE: This information has been disclosed toyou from records whose confidentiality may beprotected by state law. If your state requires suchprotection, then the state law prohibits you frommaking any further disclosure of the informationwithout the specific written consent of the personto whom it pertains, or as otherwise permitted by law.A general authorization for the release of medical orother information is NOT sufficient for this purpose. For additional information please refer [email or web address]/faq/OAY584(This link is being provided for informational/educational purposes only.) The performance of this assay has not been clinicallyvalidated in patients less than 2 years old. Test performed at [facility] [address] [address]Xrcgigsi: ASHLEE CARLISLE DO,MPH Panel Description: Bacteria identified in Urine by Culture CULTURE, URINE, 14:40:00 SEE NOTE CULTURE, URINE, ROUTINE ROUTINE MICRO NUMBER: [id number] TEST STATUS: FINAL SPECIMEN SOURCE: URINE, CLEAN CATCH SPECIMEN QUALITY: ADEQUATE RESULT: No GrowthREPORT COMMENT:RFASTING:UNKNOWNTest performed at [facility] [address] [address]Eawqiybe: ASHLEE CARLISLE DO,MPH Panel Description: CHLAMYDIA/N. GONORRHOEAE RNA, TMA CHLAMYDIA NOT DETECTED NOT DETECTED N TRACHOMATIS RNA, 14:47:00 TMA NEISSERIA NOT DETECTED NOT DETECTED N GONORRHOEAE RNA, 14:47:00 TMA [id number] SEE NOTE This test was 14:47:00 performed using the [employer] COMBO2 Assay([employer] The analytical performance characteristics of this assay, when used to test SurePath specimens havebeen determined by Eve. REPORT COMMENT:FASTING:NOTes t performed at [facility] [address] [address]Alsknlkv: ASHLEE CARLISLE DO,MPH Advance Directives Directive Yes / No Effective Date File Name Unknown Encounters Encounter Practice Location Reason(s) Diagnoses Date Provider Care Team Description For Visit Members [facility] Supervision of Foster Referring In Womens other high risk 7-201 Nora. Provider: Health PA, pregnancies, 8 [address] first Medical [place] [address], [email or web address] Center n, [address] [place], weeks gestation , [facility], of 120, Center , [id number], Yuniel [place], [facility] [place], [address]. tel: [phone] tel: [phone] , . [id number] tel: [phone] Claudette [place] Supervision of Foster Referring In Womens other high risk 0-201 Nora. Provider: Health PA, pregnancies, 8 700 [address] first Medical [place] [address], trimesterLess Center n, [address] [place], than 8 weeks , [facility], gestation of 120, [place] , , [place], [place], [address]. tel:[phone] tel: , [place]. [id number] tel: [phone] [facility] Encntr for Aug- Foster Referring In Womens suprvsn of Deeth. Provider: Asha HOLLINS, normal 7 [address] PO Box , unsp, Medical [facility] 1522, unsp trimester Center n, [address] [place], , [facility], 120, [place] , [id number], Yuniel [place], [facility] [place], [address]. tel: tel: , [place]. [id number] tel: [phone] [facility] Irregular Menses Aug-2 Foster In Womens Deeth. Asha HOLLINS, 700 [address] Medical [address], [place], , [facility], 120, [id number], [place], tel:[phone] , [place]. tel: [phone] [facility] Abnormal Pap, Apr- Foster Referring In Womens LSILAbnormal Deeth. Provider: Asha HOLLINS, Pap, 7 [address] [facility], for Center n, [address] [place], test, result , [facility] JANNETTE, negative 120, [place] , [id number], [place]uniel [place], [facility] [place], [address]. tel: tel: , [place]. [phone] tel: [phone] [facility] Pap Smear Apr-0 Foster Referring In Womens Screening, [place]. Provider: Asha HOLLINS, CervixEncounter 7 700 [address] PO Box for initial Medical [facility] 1522, prescription of Center n, [address] [place], contraceptive , [facility], pillsPostpartum 120, [place] , , Follow-Up, Y[place], [place], [address]. tel:[phone] tel:+ , [place]. [phone] tel: [phone] Claudette [place] False labor Vignesh-1 Foster Referring In Womens before 37 3-201 Nora. Provider: Health GUNJAN, completed weeks 7 700 Annette PO Box of [facility] 1522, tri Center n, [address], [facility] [place], 120, [place] , , [place], [place], [address]. tel:[phone] tel:+ , [place]. [id number] tel: [phone] Claudette [place] May-1 Foster Referring In Womens 7-201 Nora. Provider: Asha HOLLINS, 7 700 [address] PO Box [facility] 1522, Center n, [address], [facility] [place], 120, [place] , [id number], Yuniel [place], [facility] [place], [address]. tel:[phone] tel: , [place]. [id number] tel: [phone] Claudette [place] Encounter for Rafa-2 Foster In Womens ot general cnsl 7-201 Nora. Health PA, and advice on 6 700 PO Box procreation Medical [address], [place] [address], [facility] [place], 120, [id number], [place], tel:[phone] , [place]. tel: [phone] Claudette [place] Left lower Apr-1 Resendez In Womens quadrant pain 1-201 Malaika. Health PA, 6 700 [address] Medical [address], [place] [address], [facility] [place], 120, [id number], [place], [place], tel:[phone] , [place]. tel: [phone] Claudette [place] Left lower Apr-1 Foster In Womens Ultrasound quadrant pain 1-201 Nora. Health PA, 6 700 PO Box Medical [address], [place] [address], [facility] [place], 120, [id number], [place], [place], tel:[phone] , [place]. tel:[phone] Claudette [place] Left lower Dec- Foster Referring In Womens quadrant 8-201 Nora. 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 , [place]. tel: tel: [phone] Claudette [place] Sep-1 Resendez In Womens 9-201 Malaika. Asha HOLLINS, 2 700 [address] Medical [address], [place], , [place] BHATIA, 120, [id number], [place], tel: [phone] , [place]. tel: [phone] Family History Family Member Diagnosis Age At [...] Record Payers Payer name Insurance type Covered constitution party ID Authorization(s) [facility] [id number] [place] [id number] [place] Medicaid [place] [id number] [facility] [id number] [place] Medicaid [place] [id number] Social History Type Description Quantity Date Captured Alcohol Use Details No Caffeine Use Details soda 8 oz per day Tobacco Use Status Never smoked tobacco Smoking Status Never smoker Vital Signs Date / Height Weight BMI Pulse Blood Temperature Respiratory Body Head BMI Time: Rate Pressure Rate Surface Circumference percentile Area 116.00 19.7 110/70 -2018 lbs 2 mm[Hg] 2:05 kg/m PM eter (2) Chief Complaint And Reason For Visit Unknown Chief Complaint And Reason For Visit Reason For Referral Reason For Referral Unknown Plan Of Care Date Type Action Status Appointment Rosita Zhou BOOKED Future Order: Lab Order Pap Smear With HPV Reflex If ASCUS Ordered (WPMPap1) Future Order: Radiology Order Pelvic Ultrasound ([id number]) Ordered Date Type Problem Goal Intervention Status [...]
--- OUTSIDE RECORDS SUMMARY | 2018-05-16 06:31 | External Medical Summary | Continuity of Care Document ---
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 Provider: Health PA, complaint) normal 7 [address] PO Box , unsp, [facility], unsp trimester Center n, [address], [facility], 120, [place] , [id number], Yuniel [place], [place], [address]. tel:[phone] tel: , [place]. [id number] tel: [phone] [facility] Irregular Menses Dec-2 Foster In Womens 6-201 Nora. Asha HOLLINS, 7 700 [address] Medical [address], [address], [facility], 120, [id number], [place], [place], tel:[phone] , [place]. tel: [phone] Claudette [place] Abnormal Pap, Aug-1 Foster Referring In Womens LSILAbnormal 7- Nora. Provider: Asha HOLLINS, Pap, 7 [address] [facility], for Center n, [address], test, result , [facility], negative 120, [place] , [id number], [place], [place], [address]. tel:[phone] tel: , [place]. [id number] tel: [phone] [facility] Pap Smear Aug-0 Foster Referring In Womens Screening, 4-201 Nora. Provider: Asha HOLLINS, CervixEncounter 7 [address] PO Box for initial [facility] 1522, prescription of Center n, Abdelrahman Clements, contraceptive , [facility], pillsPostpartum 120, [place] , , Follow-Up, Yun[place], [place], [address]. tel:[phone] tel: , [place]. [id number] tel: [phone] [facility] False labor Vignesh-1 Foster Referring In Womens before 37 3-201 Nora. Provider: Asha HOLLINS, completed weeks 7 700 [address] PO Box of gest, third [facility] 1522, tri Center n, Abdel[address] Dr, [facility], 120, [place] , , [place], [place], [address]. tel:[phone] tel:+ , [place]. [id number] tel: [phone] Claudette [place] May- Foster Referring In Womens - Nora. Provider: Asha HOLLINS, 7 700 [address]nette [facility], Center , [address], [facility] [place], 120, [place] , , [place], [place], [address]. tel:[phone] tel:+ , [place]. [id number] tel: [phone] [facility] Encounter for Mar- Foster In Womens oth general cnsl - Nora. Health PA, and advice on 700 PO Box procreation Medical [address], [place] [address], [facility] [place], 120, , [place], [place], tel:[phone] , [place]. tel: [phone] [facility] Left lower Apr-1 Resendez In Womens quadrant pain 1-201 Malaika. Health PA, 6 700 PO Box Medical [address], [place] [address], [facility] [place], 120, , [place], tel:[phone] , [place]. tel: [phone] Claudette [place] Left lower Apr-1 Foster In Womens Ultrasound quadrant pain - Nora. Health GUNJAN, 6 700 [address] Medical [address], [place] [address], [facility] [place], 120, [id number], [place], tel:[phone] , [place]. tel: [phone] [facility] Left lower Apr-0 Foster Referring In Womens quadrant 8- Nora. 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 [place], abnormal 120, [place], [id number], findingsPap Yuniel [place], Smear Screening, [place], tel:[phone] Cervix [phone]. , [place]. tel: tel: [phone] [facility] Sep-1 [place] In Womens 9-201 Malaika. [facility], 2 700 PO [place] [facility] [address], [place] [address], [place], 120, [id number], [place], tel: [phone] , . tel: [phone] Family History Family Member Diagnosis Age At [...] Insurance type Covered constitution party ID Authorization(s) [facility] [id number] [place] Medicaid [place] [id number] [place] Medicaid [place] [id number] [facility] [id number] [place] - Medicaid MC [id number] Social History Type Description Quantity Date Captured Alcohol Use Details No Caffeine Use Details soda 8 oz per day Tobacco Use Status Never smoked tobacco Smoking Status Never smoker Non-Smoking Tobacco Use : No Details Available : No Details Available Details Vital Signs Date / Height Weight BMI Pulse Blood Temperature Respiratory Body Head BMI Time: Rate Pressure Rate Surface Circumference percentile Area 64.25 119.30 20.3 67 in lbs 2 /min mm[Hg] 1:08 kg/m PM eter (2) Chief Complaint And Reason For Visit Most recent encounter only, dated '09/21/2017 13:00'. early OB (chief complaint). Description: Her baby is 6 months old, and she's formula feeding. She never started the OCPs after delivery. By LMP, she is 3w3d. Quant yesterday was greater than 8k. No pain or bleeding. Starting to have some smell aversions. Reason For Referral Reason For Referral Unknown Plan Of Care Date Type Action Status Appointment Rosita Zhou BOOKED Future Order: Lab Order Pap Smear With HPV Reflex If ASCUS Ordered (WPMPap1) Future Order: Radiology Order Pelvic Ultrasound ([id number]) Ordered Date Type Problem Goal Intervention Status Start Date Unknown. History Of Present Illness Encounter Date Complaint History Of Present Illness early OB Her baby is 6 months old, and she's formula feeding. She never started the OCPs after delivery. By LMP, she is 3w3d. Quant yesterday was greater than 8k. No pain or bleeding. Starting to have some smell aversions. Functional Status Encounter Date Functional Assessment Cognitive Assessment Unknown Medications Administered Medication Instructions Dosage Effective Dates (start - stop) Status Comments Drug Treatment Unknown Instructions Date Instruction Additional Information labor signs group B strep screening
--- OUTSIDE RECORDS SUMMARY | 2018-05-16 06:31 | External Medical Summary | Continuity of Care Document ---
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 Provider: [employer] [place], check CervixEncounter 7 700 Annette PO Box (chief [facility], complaint)p prescription of Center n, [address] [place], ostpartum contraceptive Dr, [facility], exam (chief pillsPostpartum 120, [place] , [id number], complaint) Follow-Up, Yuniel [place], [place], [address]. tel:[phone] tel:+ , [place]. [id number] tel: [phone] [facility] False labor Vignesh-1 Foster Referring In Womens before 37 3-201 Nora. Provider: Health GUNJAN, completed weeks 7 700 Annette PO Box of [facility], [facility] 1522, [facility] Center n, [address], [facility], 120, [place] , , Yuniel [place], [place], [address]. tel:[phone] tel:+ , [place]. [id number] tel: [phone] Claudette [place] May-1 Foster Referring In Womens 7-201 Nora. Provider: Health GUNJAN, 7 700 Annette PO Box [facility] 1522, Center n, [address], [facility], 120, [place] , [id number], Yuniel Br[place], [place], [address]. tel:[phone] tel: , [place]. [id number] tel: [phone] Claudette [place] Encounter for Rafa-2 Foster In Womens oth general cnsl 7-201 Nora. Health PA, and advice on 6 700 PO Box procreation Medical [address], [place] [address], [facility], 120, , [place], [place], tel:[phone] , [place]. tel: [phone] Claudette [place] Left lower Apr-1 Resendez In Womens quadrant pain 1-201 Malaika. Health PA, 6 700 [address] Medical [address], [place] [address], [facility] [place], 120, [id number], [place], tel:[phone] , [place]. tel: [phone] Claudette [place] Left lower Apr-1 Foster In Womens Ultrasound quadrant pain 1-201 Nora. Health PA, 6 700 [address] Medical [address], [place] [address], [place], 120, [id number], [place], [place], tel: [phone] , [place]. tel: [phone] Claudette [place] Left lower Apr- Foster Referring In Womens quadrant 8-201 Nora. Provider: Health GUNJAN, Kerrintmason for 6 700 Nora Foster PO Box marketing strategy lead exam Medical K, 700 1522, (general) Center Lina Clements, (routine) w , [facility] Dr BHATIA, abnormal 120, [place] 120, [id number], findingsPap Yuniel [place], Smear Scre[place], [place], tel: Cervix [phone]. , [place]. tel: tel: [phone] Claudette [place] Sep-1 Resendez In Womens 9-201 Malaika. Asha HOLLINS, 2 700 [address] Medical [address], [place] [address], [place]AT[place], 120, [id number], [place], tel: [phone] , [place]. tel: [phone] Family History Family Member Diagnosis Age At [...] name Insurance type Covered libertarian ID Authorization(s) [facility] [id number] [place] Medicaid [place] [id number] [place] Medicaid [place] [id number] [facility] [id number] [place] - Medicaid [place] [id number] Social History Type Description Quantity Date Captured [...] For Visit Most recent encounter only, dated '04/29/2017 10:30'. incision check (chief complaint) exam (chief complaint). Description: On 03/20/2017 she had a of a 36 week 6 day male (Jackie Gutierrez) weighing 6# 5 oz. (2868g) at [facility] by Oralia Nobles MD. Apgars: 7/9. [...] dysuria. Her last pap smear was WNL on01/02/2016. Reason For Referral Reason For Referral Unknown Plan Of Care Date Type Action Status Future Order: Lab Order Pap Smear With HPV Reflex If ASCUS Ordered (WPMPap1) Future Order: Lab Order Pap Smear With HPV Reflex If ASCUS Ordered (WPMPap1) Future Order: Radiology Order Pelvic Ultrasound ([id number]) Ordered Date Type Problem Goal Intervention Status Start Date Unknown. History Of Present Illness Encounter Date Complaint History Of Present Illness incision check exam On 03/20/2017 she had a of a 36 week 6 day male (Jackie Gutierrez) weighing 6# 5 oz. (2868g) at [facility] by Oralia Nobles MD. Apgars: 7/9. [...]
--- OUTSIDE RECORDS SUMMARY | 2018-05-16 06:31 | External Medical Summary | Continuity of Care Document ---
:1990 Author Organization [facility] [facility] Address [address] [place] [phone] Phone Care Team Providers Name Role Phone Annette Gupta MD Unavailable Unavailable Allergies, Adverse Reactions, Alerts Substance Reaction Severity Status No Known Drug Allergies Unknown Active Medications Medication Instructions Dosage Effective Dates Status Comments (start - stop) Plus take 1 tablet by Not Available - Active (calcium oral route every carbonate) 27 mg day iron-1 mg tablet Diclegis 10 mg-10 take 1 tablet by - Active mg tablet,delayed oral route every release day in the morning, 1 tablet in the mid-afternoon, and 2 tablets at bedtime Problems Condition Effective Dates (start - stop) Clinical Status Encntr for suprvsn of normal , unsp, unsp trimester Irregular Menses Supervision of other high risk - pregnancies, first trimester Less than 8 weeks gestation of - False labor before 37 completed weeks - of gest, third tri Left lower quadrant pain 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 tel:[phone] tel: , [place]. [id number] tel: [phone] Claudette Brice early OB Encntr for Foster Referring In Womens (chief suprvsn of Nora. Provider: Asha HOLLINS, complaint) normal 7 700 Annette PO Box , unsp, Medical [facility] 1522, unsp trimester Center n, [address] Dr [address], [facility], 120, [place] , [id number], Yuniel Brice, [place], [address]. tel:[phone] tel: , [place]. [phone] tel: [phone] Claudette Brice Irregular Menses Foster In Womens Nora. Asha HOLLINS, 7 700 PO Box Medical 1522, Center Tyree, , [facility], 120, , [facility], tel: , [place]. tel: [phone] Claudette Brice Abnormal Pap, Foster Referring In Womens LSILAbnormal Nora. Provider: Asha HOLLINS, Pap, 7 700 Annette PO Box LSILEncounter Medical [facility] 1522, for Center n, [address], test, result , [facility], negative 120, [place] , [id number], Yuniel Brice, [place], [address]. tel:[phone] tel: , [place]. [id number] tel: [phone] Brice Pap Smear Apr-0 Foster Referring In Womens Screening, 4-201 Nora. Provider: Asha HOLLINS, CervixEncounter 7 700 Annette PO Box for initial Medical [place] 1522, prescription of Center n, [address] contraceptive , [facility], pillsPostpartum 120, [place] , , Follow-Up, [place], [place], [address]. tel:[phone] tel: , [place]. [id number] tel: [phone] Claudette Br[place] False labor Vignesh- Foster Referring In Womens before 37 3-201 Nora. Provider: Asha HOLLINS, completed weeks 7 700 Annette PO Box of gest, third Medical [place] 1522, tri Center n, [address] Dr [address], [facility], 120, [place] , , [place], [place], [address]. tel:[phone] tel: , US. [id number] tel: [phone] Claudette Brice January- Foster Referring In Womens 7-201 Nora. Provider: Asha HOLLINS, 7 700 Annette PO Box Medical [place] 1522, Center n, [facility] Dr Tyree, [facility], 120, [place] , [id number], [place], [place], [address]. tel:[phone] tel: , US. [id number] tel: [phone] Br[place] Dec- Foster In Womens 2-201 Nora. Asha HOLLINS, 6 700 PO Box Medical 1522, [place] [address] Tyree, [facility] [place], 120, [id number], [facility] [place], tel:[phone] , [place]. tel: [phone] Claudette Br[place] Encounter for Mar-2 Foster In Womens oth general cnsl 7-201 Nora. Health GUNJAN, and advice on 6 700 PO Box procreation Medical 1522, [place] [address] Tyree, [facility] [place], 120, [id number], [place], [place], tel:[phone] , [place]. tel: [phone] [facility] Left lower Apr-1 Resendez In Womens quadrant pain 1-201 Malaika. Health [place], 6 700 PO Box Medical 1522, [place] [address] Tyree, [facility] [place], 120, [id number], [facility] [place], tel:+ [phone] , [place]. tel: [phone] [facility] Left lower Apr-1 Foster In Womens Ultrasound quadrant pain 1-201 Nora. Health [place], 6 700 PO Box Medical 1522, [place] [address] Tyree, [facility] [place], 120, [id number], [facility] [place], tel:[phone] , [place]. tel: [phone] [facility] Left lower Apr-0 Foster Referring In Womens quadrant 8-201 Nora. Provider: Asha HOLLINS, painEncntr for 6 700 Nora Foster PO Box finished cigar maker exam Medical K, 700 1522, (general) [place] Lina Clements, (routine) w , [facility] Dr BHATIA, abnormal 120, [place] 120, [id number], findingsPap [facility], Smear Screening, [place], [place], tel:+ Cervix [phone]. , [place]. tel: tel: [phone] [facility] Sep-1 Resendez In Womens 9-201 Malaika. Health GUNJAN, 2 700 PO Box Medical 1522, [place] [address] Tyree, [facility] [place], 120, [id number], [facility] [place], tel: [phone] , [place]. tel: [phone] Family History Family Member Diagnosis Age At [...] name Insurance type Covered republican ID Authorization(s) [facility] [id number] [place] - Medicaid [place] [id number] [place] Medicaid MC [id number] [facility] Select [id number] [place] - Medicaid MC [id number] Social History Type Description Quantity Date Captured [...] Circumference percentile Area 64.25 119.30 20.3 67 96/64 2017 in lbs 2 /min mm[Hg] 1:08 kg/m PM eter (2) Chief Complaint And Reason For Visit Unknown Chief Complaint And Reason For Visit Reason For Referral Reason For Referral Unknown Plan Of Care Date Type Action Status Appointment Rosita Zhou BOOKED Future Order: Lab Order Pap Smear With HPV Reflex If ASCUS Ordered (WPMPap1) Future Order: Radiology Order Pelvic Ultrasound ([id number]) Ordered Date Type Problem Goal Intervention Status [...]
--- OUTSIDE RECORDS SUMMARY | 2018-05-16 06:32 | External Medical Summary | Continuity of Care Document ---
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 Provider: Asha HOLLINS, pregnancies, 8 700 Annette PO Box first Medical [place] 1522, trimesterLess Center n, [address], than 8 weeks , [facility], gestation of 120, [place] , , Yuniel [place], [place], [address]. tel:[phone] tel:+ , US. [id number] tel: [phone] [facility] Encntr for Aug- Foster Referring In Womens suprvsn of Nora. Provider: Asha HOLLINS, normal 7 700 Annette PO Box , unsp, Medical [place] 1522, unsp trimester Center n, [address] Dr [address], [facility], 120, [place] , [id number], Yuniel Br[place], [place], [address]. tel:[phone] tel:+ , US. [id number] tel: [phone] Claudette Brice Irregular Menses Aug- Foster In Womens Nora. Asha HOLLINS, 7 700 PO Box Medical 1522, [address] Dr [address], [facility] [place], 120, , [place], [place], tel:[phone] , [place]. tel: [phone] Claudette Brice Abnormal Pap, Apr- Foster Referring In Womens LSILAbnormal Nora. Provider: Asha HOLLINS, Pap, 7 700 Annette PO Box LSILEncounter Medical [place] 1522, for Center n, [address], test, result , [facility], negative 120, [place] , [id number], Yuniel [place], [place], [address]. tel:[phone] tel:[phone] , US. [id number] tel: [phone] Claudette Brice Pap Smear Aug-0 Foster Referring In Womens Screening, 4-201 Nora. Provider: Health GUNJAN, CervixEncounter 7 700 Annette PO Box for initial Medical [place] 1522, prescription of Center n, [address], breanne Carballo, [facility], pillsPostpartum 120, [place] , , Follow-Up, [place], [place], [address]. tel:[phone] tel: , US. [id number] tel: [phone] Claudette Brice False labor Vignesh- Foster Referring In Womens before 37 3-201 Nora. Provider: Asha HOLLINS, completed weeks 7 700 Annette PO Box of gest, third Medical [place] 1522, tri Center n, [address] Dr [address], [facility], 120, [place] , , [place], [place], [address]. tel:[phone] tel: , US. [id number] tel: [phone] Claudette Brice January- Foster Referring In Womens 7- Nora. Provider: Asha HOLLINS, 7 700 Annette PO Box Medical [place] 1522, Center n, [facility] Dr Tyree, [facility], 120, [place] , , [place], [place], [address]. tel:[phone] tel: , US. [id number] tel: [phone] Claudette Brice Dec- Foster In Womens 2-201 Nora. Asha HOLLINS, 6 700 PO Box Medical 1522, [place] [address], [facility] [place], 120, [id number], [place], [place], tel:[phone] , [place]. tel: [phone] Claudette Brice Encounter for Rafa-2 Foster In Womens ot general cnsl 7- Nora. Health [place], and advice on 6 700 PO Box procreation Medical 1522, [place] [address]ree, [facility] [place], 120, , [place], [place], tel:[phone] , [place]. tel: [phone] [facility] [place] Left lower Apr-1 Resendez In Womens quadrant pain 1-201 Malaika. Health GUNJAN, 6 700 PO Box Medical 1522, [place] [address], [facility] [place], 120, [id number], [facility] [place], tel:[phone] , [place]. tel: [phone] [facility] [place] Left lower Apr-1 Foster In Womens Ultrasound quadrant pain 1-201 Nora. Health PA, 6 700 PO Box Medical 1522, [place] [address]ree, [facility] [place], 120, [id number], [facility] [place], tel:[phone] , [place]. tel: [phone] [facility] [place] Left lower Apr-0 Foster Referring In Womens quadrant 8-201 Nora. Provider: Asha HOLLINS, painEncntr for 6 700 Nora Foster PO Box heat treater helper exam Medical K, 700 1522, (general) [place] Lina Clements, (routine) w , [facility] [place], abnormal 120, [place] 120, [id number], findingsPap [place], Smear Screening, [place], [place], tel:+2 Cervix [phone]. , [place]. tel: tel: [phone] [facility] Sep-1 Resendez In Womens 9-201 Malaika. Health GUNJAN, 2 700 PO Box Medical 1522, [place] [address], [place], 120, [id number], [facility] [place], tel:[phone] , [place]. tel: [phone] Family History Family Member Diagnosis Age At [...] type Covered green party ID Authorization(s) [facility] [id number] [place] - Medicaid [place] [id number] [place] - Medicaid [place] [id number] [facility] [id number] [place] - Medicaid [place] [id number] Social History Type Description Quantity Date Captured [...] (WPMPap1) Future Order: Radiology Order Pelvic Ultrasound ([id number]) Ordered Date Type Problem Goal Intervention Status [...]
--- OUTSIDE RECORDS SUMMARY | 2018-05-16 06:32 | External Medical Summary | Continuity of Care Document ---
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 tel:[phone] tel: , US. [phone] tel: [phone] Claudette Brice Supervision of Dec-0 Foster Referring In Womens Ultrasound other high risk 2-201 Nora. Provider: Asha HOLLINS, pregnancies, 8 700 Annette PO Box second Medical [place] 1522, trimesterMatern Center n, 700 [place], care for oth or [place], susp poor fetl 120, Center , [id number], grth, 2nd [place]uniel [place], unsp18 [place], [address]. tel: gestation of [phone] tel: , US. [id number] tel: [phone] Claudette Brice Matern care for Nov-0 Foster Referring In Womens oth or susp poor 7-201 Nora. Provider: Asha HOLLINS, fetl grth, 2nd 8 700 Annette PO Box tri, unsp15 Medical [place] 1522, weeks gestation Center n, 700 [place], of , [facility], 120, Center , [id number], [place], [place], [address]. tel:[phone] tel: , US. [id number] tel: [phone] Claudette Brice Supervision of Oct-0 Foster Referring In Womens other high risk 7-201 Nora. Provider: Health GUNJAN, pregnancies, 8 700 Annette PO Box first Medical [place] 1522, [id number] Center n, 700 [place], weeks gestation , [facility], of 120, Center , [id number], [place], [place], [address]. tel:[phone] tel: , US. [id number] tel: [phone] Claudette Brice Supervision of Sep- Foster Referring In Womens other high risk 0-201 Nora. Provider: Health GUNJAN, pregnancies, 8 700 Annette PO Box first Medical [place] 1522, trimesterLess Center n, 700 [place], than 8 weeks , [facility], gestation of 120, Center , , Yuniel [place], [facility] [place], [address]. tel:[phone] tel: , US. [id number] tel: [phone] [facility] Encntr for Dec-2 Foster Referring In Womens suprvsn of 7-201 Nora. Provider: Health GUNJAN, normal 7 700 Annette PO Box , unsp, Medical [place] 1522, unsp trimester Center n, [address], [facility], 120, Center , [id number], [place], [place], [address]. tel:[phone] tel: , US. [id number] tel: [phone] Claudette Brice Irregular Menses Dec-2 Foster In Womens 6-201 Nora. Health GUNJAN, 7 700 PO Box Medical 1522, [address] Dr [address], [facility] [place], 120, [id number], [place], [place], tel:[phone] , [place]. tel: [phone] Claudette Brice Abnormal Pap, Aug- Foster Referring In Womens LSILAbnormal 7- Nora. Provider: Asha HOLLINS, Pap, 7 700 Annette PO Box [facility] 1522, for Center n, 700 [place], test, result , [facility], negative 120, [place] , [id number], Yuniel Br[place], [facility] [place], [address]. tel: tel: , US. [phone] tel: [phone] Claudette Brice Pap Smear Aug-0 Foster Referring In Womens Screening, 4- Nora. Provider: Asha HOLLINS, [facility] 7 700 Annette PO Box for initial [facility] 1522, prescription of Center n, 700 [place], contraceptive , [facility], pillsPostpartum 120, [place] , [id number], Follow-Up, Yuniel [place], [place], [address]. tel:[phone] tel: , US. [id number] tel: [phone] Claudette Brice False labor Vignesh- Foster Referring In Womens before 37 3-201 Nora. Provider: Asha HOLLINS, completed weeks 7 700 Annette PO Box of [facility] 1522, tri Center n, [address] Dr [address], [facility], 120, [place] , [id number], Yuniel [place], [facility] [place], [address]. tel: tel: , US. [phone] tel: [phone] Claudette Brice January- Foster Referring In Womens 7-201 Nora. Provider: Asha HOLLINS, 7 700 Annette PO Box [facility] 1522, Center n, [address] Dr [address], [facility], 120, Center , [id number], Yuniel [place], [facility] [place], [address]. tel:[phone] tel: , US. [id number] tel:[phone] [facility] Encounter for Mar-2 Foster In Womens oth general cnsl 7-201 Nora. Health PA, and advice on 6 700 PO Box procreation Medical 1522, [place] [address], [place], 120, [id number], [place], [place], tel: [phone] , [place]. tel: [phone] [facility] Left lower Apr-1 Resendez In Womens quadrant pain 1-201 Malaika. Health PA, 6 700 PO Box Medical 1522, [place] [address], [place], 120, [id number], [place], [place], tel:[phone] , [place]. tel: [phone] Claudette [place] Left lower Apr-1 Foster In Womens Ultrasound quadrant pain 1-201 Nora. Health PA, 6 700 PO Box Medical 1522, [place] [address]ree, [facility] [place], 120, , [facility] [place], tel:[phone] , [place]. tel: [phone] Claudette [place] Left lower Apr-0 Foster Referring In Womens quadrant 8-201 Nora. 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 , [place]. tel: tel: [phone] [facility] Sep-1 Resendez In Womens 9-201 Malaika. Health PA, 2 700 PO Box Medical 1522, [place] [address]ree, [place], 120, , [facility] [place], tel:[phone] , [place]. tel: [phone] Family History Family Member Diagnosis Age At [...] Insurance type Covered alliance party ID Authorization(s) [facility]erg[facility] with [facility] [id number] [place] Of [place] - Medicaid [place] [id number] [place] - Medicaid [place] [id number] Merged with [facility] [id number] [place] - Medicaid MC [id number] Social History Type Description Quantity Date Captured [...] Complete OB Ultrasound > 14 Weeks Ordered ([id number]) Future Order: Lab Order Pap Smear With HPV Reflex If ASCUS Ordered (WPMPap1) Future Order: Radiology Order Pelvic Ultrasound ([id number]) Ordered Date Type Problem Goal Intervention Status [...]
[2018-05-16] MEDS ORDERED: DiphenhydrAMINE 50 MG/ML INJECTION IVP PRN ×3 (07:50→16:27)
[2018-05-16] MEDS ORDERED: ROPIVACAINE 1% 10MG/ML INJ 200 MG, SUFentanil 50 MCG in NS 100 ML EPI PRN (07:50)
[2018-05-16] MEDS ORDERED: ONDANSETRON 4 MG/2 ML INJECTION IVP PRN ×3 (07:50→16:27)
[2018-05-16] MEDS ORDERED: NALOXONE 0.4 MG/ML INJECTION IVP PRN ×3 (07:50→16:27)
--- NOTE | 2018-05-16 07:54 | Anesthesia Preoperative Report ---
Anesthesia Epidural/Spinal Rec - Date and Time Date: 05/16/18 Procedure: Labor Epidural Plan: Epidural - Vital Signs Vital Signs: Temperature 97.7 F 05/16/18 06:17 Pulse Rate 66 05/16/18 06:17 Respiratory Rate 16 05/16/18 06:17 Blood Pressure 111/75 05/16/18 06:17 /Para: P:3 - Medictaions & Allergies Inpatient Medications: Current Medications Acetaminophen (Tylenol) 500 - 1,000 mg PO Q4H PRN PRN Reason: Pain Al Hydroxide/Mg Hydroxide (Maalox Plus) 30 ml PO Q3H PRN PRN Reason: Indigestion Calcium Carbonate (Tums) 500 - 1,000 mg PO Q2H PRN PRN Reason: Indigestion Carboprost Tromethamine (Hemabate) 250 mcg IM O PRN PRN Reason: .Downtime Dextrose/Lactated Ringer's (Dextrose 5%-Lactated Ringers) 1,000 mls @ 125 mls/ hr IV .Q8H PRN PRN Reason: Labor Last Admin: 05/16/18 06:46 Dose: 125 mls/hr Lactated Ringer's (Lactated Ringers) 1,000 mls @ 999 mls/hr IV .Q1H1M PRN Last Admin: 05/16/18 06:25 Dose: 999 mls/hr Oxytocin (Pitocin Drip) 30 unit in 500 mls @ 2 mls/hr IV .Q24H PRN; Protocol PRN Reason: Induction/Augmentation Last Admin: 05/16/18 06:45 Dose: 2 mls/hr Lidocaine HCl (Xylocaine-Mpf 1% Vial) 0.2 mg ID O PRN PRN Reason: IV Start Methylergonovine Maleate (Methergine) 0.2 mg IM O PRN Misoprostol (Cytotec) 800 mcg AL ONCE PRN Sodium Chloride (Iv Flush) 10 - 80 ml IV PRN PRN PRN Reason: Flushing Allergies/Adverse Reactions: Allergies Allergy/AdvReac Type Severity Reaction Status Date / Time No Known Drug Allergies Allergy Unknown Verified 03/20/17 09:54 - Home Medications Home Medications: Home Medications Medication Instructions Recorded Confirmed Type Acetaminophen [Tylenol] 1 - 2 tab PO Q6HPRN PRN 03/15/17 03/20/17 History Doxylamine/Pyridoxine HCl (B6) 1 each PO DAILY 03/15/17 03/20/17 History [Marv Carballo 10-10 mg Tablet] Docusate Calcium [Surfak] 240 mg PO DAILY cap 03/21/17 Rx Ibuprofen [Motrin] 800 mg PO Q8H PRN #50 03/21/17 Rx Vit Calc,Iron,Folic 1 each PO DAILY #90 03/21/17 04/26/18 Rx [ Vitamins] - Medical History Respiratory: DENIES: Asthma Cardiovascular: DENIES: Heart Murmur, Hypertension Gastrointestional: DENIES: Gastroesophageal Reflux Disease Renal/Endocrine: DENIES: Diabetes Mellitus Type 2 Other History: Reports: Now DENIES: Anesthesia Reactions - Surgical History GI Surgery/Treatments: Reports: Cholecystectomy Reproductive Surgery/Treatment: DENIES: Section Hx Family Anesthesia Reaction: No History of Motion Sickness: No - Social History Smoking Status: Never smoker Second Hand Exposure: No Substance Use Type: does not use Alcohol Intake Frequency: does not drink Hx Chewing Tobacco Use: No - Pertinent Findings Lab Data: CBC and BMP 05/16/18 06:28 EKG Rhythm: Normal Sinus Rhythm - Physical Exam Respiratory Exam: lungs clear Cardiovascular Exam: regular rate and rhythm - Airway Assessment Mallampati Score: II TMD: 3 Fingerbreadths Neck Extension: good Overall Assessment: no airway concerns - ASA ASA Score: 2 - Discussion Discussion: Discussed risks/options/alternatives of anesthesia and questions answered. Patient consents. Nursing pain assessment noted. Attestation Statement: Prior to the delivery of any anesthetic medication, I examined the patient, developed the plan, obtained the patient's consent and discussed the risk and benefits of the procedure with the patient/guardian.
[2018-05-16] MEDS ORDERED: HYDROCORTISONE 2.5% CREAM 30gm RECTALLY PRN (10:33)
[2018-05-16] MEDS ORDERED: HYDROCODONE/APAP 5mg/325mg TABLET PO PRN (10:33)
[2018-05-16] MEDS ORDERED: DiphenhydrAMINE 25 MG CAPSULE PO PRN (10:33)
[2018-05-16] MEDS ORDERED: OXYTOCIN DRIP 30 UNIT/500 ML ML IV SCH (10:45)
--- NOTE | 2018-05-16 14:29 | Labor and Delivery Note ---
DATE OF DELIVERY 05/16/2018 Rosita is a 27-year-old 4, para 2-1-0-3 at 39 weeks gestational age who was brought in for a Pitocin induction this morning due to logistics. Her membranes were ruptured artificially returning clear fluids. She received an epidural. I got a phone call that the patient was complete and having pressure. Shortly afterwards I got a phone call that the baby had delivered without mom even pushing. On my arrival, the cord was being clamped. Baby was vigorous at delivery. She was taken to the warmer because mom declined skin to skin. At this point, the bed was broken down. The placenta delivered spontaneously. She had a small second-degree laceration that was repaired with 2-0 Vicryl. Baby is a viable female infant, Apgars 8/9, weight 3122 grams, name "Case". Mom [facility] baby tolerated the delivery well. [facility]
--- NOTE | 2018-05-16 16:25 | Anesthesia Postoperative Note ---
- Date and Time Date: 05/16/18 - Status Patient Participated in Evaluation: Patient Participated in Person Vital Signs: Temperature 97.7 F 05/16/18 06:17 Pulse Rate 66 05/16/18 06:17 Respiratory Rate 16 05/16/18 06:17 Blood Pressure 111/75 05/16/18 06:17 Respiratory Function: Airway Patent Cardiovascular Function: Regular Pulse EKG: Sinus Rhythm Mental Status: Alert and Oriented Hydration: Taking PO Fluids Nausea/Vomiting: None Complications During Recover: None Apparent - Follow-Up Instructions Instructions: Per Surgeon
[2018-05-16] MEDS: IBUPROFEN 800 MG TABLET PO PRN (19:22)
[2018-05-17] MEDS: IBUPROFEN 800 MG TABLET PO PRN ×2 (03:32→13:50)
--- NOTE | 2018-05-17 08:02 | OB/GYN Progress Note ---
OB-PP Progress Note - General PPD1 Maternal Group B Strep: Negative Maternal Rubella Status: Immune - Subjective Date: 05/17/18 Lochia: Moderate Pain: controlled Voiding: voiding Nausea or Vomiting Present: No - Objective Vital Signs: Last Vital Signs Temp 97.7 F 05/16/18 23:00 Pulse 59 L 05/16/18 23:00 Resp 16 05/16/18 23:00 BP 95/60 05/16/18 23:00 Urine Output: good General: alert and oriented Abdomen: fundus firm Extremities: non-tender - Assessment Assessment: - Plan Plan: routine care, discharge home
[2018-05-17 08:28] VITALS: TEMP 97.9
[2018-05-17] MEDS ORDERED: DOCUSATE CALCIUM 240 MG CAPSULE PO SCH (09:00)
[2018-05-17 14:17] VITALS: BP 104/67; PULSE 70; RESP 18
== END 2018-05-17 14:10 | disposition home or self-care (01) | DRG 775 ==
LOC: MC 06:04
PROVIDERS: ADMIT Obstetrics & Gynecology; ATTEND Obstetrics & Gynecology